=== PATIENT | male | born 1995 | race Caucasian/White ===

== ENCOUNTER 2019-01-24 23:17 | Inpatient (IN) | payer OTHER ==
[~2019-01-24] VITALS: Ht 170.2 cm; Wt 106.4 kg
[~2019-01-24 23:17] MED LIST: IBUP800T48 PO; SODI44SP11 NS
[2019-01-24] MEDS ORDERED: ONDANSETRON 4 MG INJ IV STA (23:40)
[2019-01-24] MEDS ORDERED: morphine 4 MG/ML VIAL IV STA (23:40)
[2019-01-24] MEDS ORDERED: SOD CHLORIDE 0.9% 1,000 ML IV STA (23:40)
[2019-01-25] VITALS (14 sets, daily range): BP systolic 114–149; BP diastolic 57–79; PULSE 70–114; RESP 11–18; Ht 170.2 cm; Wt 106.4 kg
--- NOTE | 2019-01-25 00:09 | ERD ---
ER Documentation Chief Complaint Chief Complaint R groin pain w/dysuria x 2 days HPI 23-year-old male is here with right-sided abdominal pain abdomen 2 days. Dysuria but no hematuria or frequency. No abnormal penile discharge. Denies testicular pain. he does state he is had fever at home as well as chills. No nausea vomiting or diarrhea. ROS All systems reviewed and are negative except as per history of present illness. Medications Home Meds Active Scripts Sodium Chloride (Saline Nasal [place]) 45 Ml [place], 2 SPRAYS NS Q2H PRN for NASAL CONGESTION, #1 BOT Prov:WANDA GRAVES. [employer] 03/01/15 Ibuprofen* (Motrin*) 800 Mg Tab, 800 MG PO Q6H PRN for PAIN AND OR ELEVATED TEMP, #30 TAB Prov:WANDA GRAVES. [employer] 03/01/15 Allergies Allergies: Coded Allergies: No Known Allergy (Unverified , 08/08/14) PMhx/Soc History of Surgery: No Anesthesia Reaction: No Hx Neurological Disorder: No Hx Respiratory Disorders: No Hx Cardiac Disorders: No Hx Psychiatric Problems: No Hx Miscellaneous Medical Probl: No Hx Alcohol Use: No Hx Substance Use: No Hx Tobacco Use: No Smoking Status: Never smoker FmHx Family History: No diabetes Physical Exam Vitals Vital Signs Date Temp Pulse Resp B/P (MAP) Pulse Ox O2 O2 Flow FiO2 Time Delivery Rate 01/24/19 99.8 87 18 143/63 98 23:20 (89) Physical Exam Const: No acute distress Head: Atraumatic Eyes: Normal Conjunctiva ENT: Normal External Ears, Nose and Mouth. Neck: Full range of motion. No meningismus. Resp: Clear to auscultation bilaterally Cardio: Regular rate and rhythm, no murmurs Abd: Soft, nondistended, positive McBurney's point tenderness, diffuse tenderness throughout Result Diagram: 01/24/19 2346 01/24/19 2346 Results 24 hrs Laboratory Tests Test 01/24/19 23:46 White Blood Count 14.8 10^3/ul Red Blood Count 5.06 10^6/ul Hemoglobin 15.3 g/dl Hematocrit 44.2 % Mean Corpuscular Volume 87.4 fl Mean Corpuscular Hemoglobin 30.2 pg Mean Corpuscular Hemoglobin Concent 34.6 g/dl Red Cell Distribution Width 11.4 % Platelet Count 478 10^3/UL Mean Platelet Volume 8.8 fl Immature Granulocytes % 0.500 % Neutrophils % 62.1 % Lymphocytes % 29.2 % Monocytes % 6.9 % Eosinophils % 0.8 % Basophils % 0.5 % Nucleated Red Blood Cells % 0.0 /100WBC Immature Granulocytes # 0.070 10^3/ul Neutrophils # 9.2 10^3/ul Lymphocytes # 4.3 10^3/ul Monocytes # 1.0 10^3/ul Eosinophils # 0.1 10^3/ul Basophils # 0.1 10^3/ul Nucleated Red Blood Cells # 0.0 10^3/ul Urine Color YELLOW Urine Clarity CLEAR Urine pH 6.0 Urine Specific [place] 1.025 Urine Ketones NEGATIVE mg/dL Urine Nitrite NEGATIVE mg/dL Urine Bilirubin NEGATIVE mg/dL Urine Urobilinogen NEGATIVE mg/dL Urine Leukocyte Esterase NEGATIVE Melody/ul Urine Microscopic RBC 2 /HPF Urine Microscopic WBC 0 /HPF Urine Mucus FEW /HPF Urine Hemoglobin 1+ mg/dL Urine Glucose NEGATIVE mg/dL Urine Total Protein NEGATIVE mg/dl Sodium Level 144 mmol/L Potassium Level 3.9 mmol/L Chloride Level 104 mmol/L Carbon Dioxide Level 27 mmol/L Anion Gap 13 Blood Urea Nitrogen 11 mg/dl Creatinine 0.96 mg/dl Est Glomerular Filtrat Rate mL/min > 60 mL/min Glucose Level 102 mg/dl Calcium Level 9.9 mg/dl Total Bilirubin 0.9 mg/dl Direct Bilirubin 0.00 mg/dl Indirect Bilirubin 0.9 mg/dl Aspartate Amino Transf (AST/SGOT) 57 IU/L Alanine Aminotransferase (ALT/SGPT) 117 IU/L Alkaline Phosphatase 83 IU/L Total Protein 8.3 g/dl Albumin 4.6 g/dl Globulin 3.70 g/dl Albumin/Globulin Ratio 1.24 Lipase 53 U/L Current Medications Medications Dose Sig/Froy Start Time Status Last (Trade) Ordered Route PRN Stop Time Admin Dose Reason Admin Sodium 1,000 ml @ Q1H STAT 01/24/19 DC 01/25/19 Chloride 1,000 mls/hr IV 23:40 00:01 01/25/19 00:39 Morphine 4 mg ONCE STAT 01/24/19 DC 01/25/19 Sulfate IV 23:40 00:01 (morphine) 01/24/19 23:42 Ondansetron 4 mg ONCE STAT 01/24/19 DC 01/25/19 HCl (Zofran IV 23:40 00:01 Inj) 01/24/19 23:42 Procedures/MDM The differential diagnosis includes but is not limited to appendicitis, cholelithiasis, cholecystitis, pancreatitis, hepatitis, gastritis, peptic ulcer disease, bowel obstruction, diverticulitis, renal disease including stones, torsion, AAA, pyelonephritis, and others. Abdominal labs and CT ordered. He was given IV fluids Zofran and morphine. Elevated white blood cell count of 14.8 otherwise labs are unremarkable. CT shows 1. Right lower quadrant 2 cm diameter. Structure with thick maldonado and surrounding infiltration which is most consistent with the appendix. The adjacent distal small small bowel wall thicken ing infiltration. Mild free fluid without a discrete abscess or collection. Relatively large diameter of the appendix is consistent with a surrounding inflammatory mass. Lack of intravenous contrast material limits evaluation for abscess. Patient will be moved to ER 1 for admission. Departure Diagnosis: Primary Impression: Appendicitis Condition: SOLIS Rm PA-C Jan 25, 2019 00:09
[2019-01-25] MEDS ORDERED: ONDANSETRON 4 MG INJ IV ONE (01:17)
[2019-01-25] MEDS ORDERED: morphine 4 MG/ML VIAL IV ONE (01:17)
[2019-01-25] MEDS ORDERED: LACTATED RINGER'S 1,000 ML IV STA (01:32)
[2019-01-25] MEDS ORDERED: PIPER-TAZO 3.375 GM IV (PMX) 100 ML IVPB ONE (02:00)
[2019-01-25] MEDS ORDERED: SOD CHLORIDE 0.9% 1,000 ML IV SCH (03:11)
--- NOTE | 2019-01-25 03:14 | EN ---
Date/Time of Note Date/Time of Note DATE: 01/25/19 TIME: 03:13 ER Progress Note This patient was originally seen in fast track and was diagnosed with appendicitis. The patient was transferred to the main emergency room. On my exam the patient did have right lower quadrant tenderness to palpation. I did review his labs and CAT scan and started the patient on Zosyn and IV fluids. After a small delay we were able to get a hold of on-call surgeon Dr. Us. I have presented the case to him and he states that he will consult Dr. Hilario so that physician can see this patient. The patient will be admitted to panel physician at this time OLIVIA DUFFY DO Jan 25, 2019 03:14
[2019-01-25] MEDS ORDERED: ONDANSETRON 4 MG INJ IV PRN ×3 (03:30→14:00)
[2019-01-25] MEDS ORDERED: ACETAMINOPHEN 325 MG TAB PO PRN (03:30)
[2019-01-25] MEDS ORDERED: D5W-0.45 NACL + KCL 20 MEQ 1,000 ML IV SCH (05:11)
[2019-01-25] MEDS ORDERED: NACL 0.9% 3 ML SYG IV SCH (05:30)
[2019-01-25] MEDS ORDERED: morphine 2 MG INJ IV PRN (05:30)
[2019-01-25] MEDS: PIPER-TAZO 3.375 GM IV (PMX) 100 ML IVPB SCH ×2 (05:50→12:05)
[2019-01-25] MEDS: morphine 4 MG/ML VIAL IV PRN ×2 (06:06→10:05)
--- NOTE | 2019-01-25 06:20 | HP ---
Date/Time of Note Date/Time of Note DATE: 01/25/19 TIME: 06:18 Assessment/Plan VTE Prophylaxis Risk score (from [facility]0 risk: 1 SCD applied (from Ns): Yes Pharmacological prophylaxis: NA/contraindicated Pharm contraindication: other (Patient with acute appendicitis, awaiting surgical eval) Lines/Catheters IV C[facility]ter Type [facility]from [facility] Saline Lock Assessment/Plan Assessment/Plan 1. Abdominal pain, most likely 2/2 acute Appendicitis -keep NPO with IVF -IV Abx -Pain mgmt -Awaiting surgical Eval 2. SIRS vs Sepsis: as evidenced by leukocytosis and tachycardia -IVF, abx -see #1 Result Diagram: 01/24/19 2346 01/24/19 2346 Results 24hrs Laboratory Tests Test 01/24/19 23:46 White Blood Count 14.8 H Red Blood Count 5.06 Hemoglobin 15.3 Hematocrit 44.2 Mean Corpuscular Volume 87.4 Mean Corpuscular Hemoglobin 30.2 Mean Corpuscular Hemoglobin Concent 34.6 Red Cell Distribution Width 11.4 L Platelet Count 478 H Mean Platelet Volume 8.8 Immature Granulocytes % 0.500 H Neutrophils % 62.1 Lymphocytes % 29.2 Monocytes % 6.9 Eosinophils % 0.8 Basophils % 0.5 Nucleated Red Blood Cells % 0.0 Immature Granulocytes # 0.070 H Neutrophils # 9.2 H Lymphocytes # 4.3 H Monocytes # 1.0 H Eosinophils # 0.1 Basophils # 0.1 Nucleated Red Blood Cells # 0.0 Urine Color YELLOW Urine Clarity CLEAR Urine pH 6.0 Urine Specific [place] 1.025 Urine Ketones NEGATIVE Urine Nitrite NEGATIVE Urine Bilirubin NEGATIVE Urine Urobilinogen NEGATIVE Urine Leukocyte Esterase NEGATIVE Urine Microscopic RBC 2 Urine Microscopic WBC 0 Urine Mucus FEW A Urine Hemoglobin 1+ H Urine Glucose NEGATIVE Urine Total Protein NEGATIVE Sodium Level 144 Potassium Level 3.9 Chloride Level 104 Carbon Dioxide Level 27 Anion Gap 13 Blood Urea Nitrogen 11 Creatinine 0.96 Est Glomerular Filtrat Rate mL/min > 60 Glucose Level 102 Calcium Level 9.9 Total Bilirubin 0.9 Direct Bilirubin 0.00 Indirect Bilirubin 0.9 Aspartate Amino Transf (AST/SGOT) 57 H Alanine Aminotransferase (ALT/SGPT) 117 H Alkaline Phosphatase 83 Total Protein 8.3 H Albumin 4.6 Globulin 3.70 H Albumin/Globulin Ratio 1.24 Lipase 53 HPI/ROS Admit Date/Time Admit Date/Time Jan 25, 2019 at 03:12 Hx of Present Illness Patient is a 23-year-old male who presented to ER complaining of abdominal pain x2 days. Pain is mainly localized in the right lower quadrant area. Reported associated nausea. When presented to the ER, he had a temp of 99.8. WBC almost 15,000. CT abdomen/pelvis shows the followin. Right lower quadrant 2 cm diameter. Structure with thick maldonado and surrounding infiltration which is most consistent with the appendix. The adjacent distal small small bowel wall thickening infiltration. Mild free fluid without a discrete abscess or collection. Relatively large diameter of the darshan endix is consistent with a surrounding inflammatory mass. Lack of intravenous contrast material limits evaluation for abscess. 2. Diffuse abdominal lymph nodes, largest in the right lower quadrant. 3. Enlarged fatty liver. PMH/Family/Social Past Medical History Medical History: other (See HPI) Medications Current Medications Sodium Chloride 1,000 ml @ 80 mls/hr [id number] IV ; Start 01/25/19 at 03:11; Stop 01/25/19 at 15:40 Ondansetron HCl (Zofran Inj) 4 mg BRIDGE ORDER PRN IV NAUSEA/VOMITING; Start 01/25/19 at 03:30; Stop 01/26/19 at 03:29 Acetaminophen (Tylenol Tab) 650 mg ER BRIDGE PRN PO .MILD PAIN 1-3 OR TEMP; Start 01/25/19 at 03:30; Stop 01/26/19 at 03:29 Potassium Chloride/Dextrose/ Sod Cl 1,000 ml @ 120 mls/hr Q8H20M IV Last administered on 01/25/19at 05:44; Admin Dose 120 MLS/HR; Start 01/25/19 at 05:11 IV Flush (NS 3 ml) 3 ml PER PROTOCOL IV ; Start 01/25/19 at 05:30 Ondansetron HCl (Zofran Inj) 4 mg Q6H PRN IV NAUSEA/VOMITING; Start 01/25/19 at 05:30 Piperacillin Sod/ Tazobactam Sod 100 ml @ 200 mls/hr Q6 IVPB Last administered on 01/25/19at 05:50; Admin Dose 200 MLS/HR; Start 01/25/19 at 06:00 Ketorolac Tromethamine (Toradol) 30 mg Q6H PRN IV PAIN LEVEL 1-3; Start 01/25/19 at 05:30; Stop 01/28/19 at 05:29 Morphine Sulfate (morphine) 2 mg Q4H PRN IV SEVERE PAIN LEVEL 7-10 Last administered on 01/25/19at 06:06; Admin Dose 2 MG; Start 01/25/19 at 06:03 Coded Allergies: No Known Allergy (Unverified , 08/08/14) Past Surgical History Past Surgical Hx: other (See HPI) Family History Significant Family History: no pertinent family hx Social History Alcohol Use: none Smoking Status: Never smoker Drug Use: none Exam/Review of Systems Vital Signs Vitals Vital Signs Date Temp Pulse Resp B/P (MAP) Pulse Ox O2 O2 Flow FiO2 Time Delivery Rate 01/25/19 97.9 75 18 135/70 99 Room Air 03:56 (91) Exam Constitutional: alert, oriented, well developed Head: normocephalic, atraumatic Eyes: PERRL Respiratory: clear to auscultation, normal air movement Cardiovascular: regular rate and rhythm, nl pulses Gastrointestinal: soft, tender Extremities: normal pulses JOY CHAUDHRY MD Jan 25, 2019 06:20
--- NOTE | 2019-01-25 10:29 | CONS ---
Assessment/Plan Assessment/Plan Hospital Course (Demo Recall) Admitted started on antibx - Dr. Silver consulted overnight -- was unable to do surgery bc of more urgent OR case - in am 9am case was signed out to Dr. Alvarez for follow up. patient was Rx with Antibx and fluids and pain meds -- CT completed. plan for OR Assessment/Plan (Daily) Acute appendicitis with possible abscess - associated inflammation Plan: Lap Appendectomy, possible open, depending on the degree of inflammation patient may need possible bowel resection Risk Benefits and alternative reviewed with the patient - translated in Irish Antibiotics on board Consultation Date/Type/Reason Admit Date/Time Jan 25, 2019 at 03:12 Type of Consult General Surgery Reason for Consultation Evaluation of acute appendicitis Date/Time of Note DATE: 01/25/19 TIME: 10:20 Hx of Present Illness Patient is a 23-year-old male who presented to ER complaining of abdominal pain x2 days. Pain is mainly localized in the right lower quadrant area. Reported associated nausea. When presented to the ER, he had a temp of 99.8. WBC almost 15,000. CT abdomen/pelvis shows the followin. Right lower quadrant 2 cm diameter. Structure with thick maldonado and surrounding infiltration which is most consistent with the appendix. The adjacent distal small small bowel wall thickening infiltration. Mild free fluid without a discrete abscess or collection. Relatively large diameter of the appendix is consistent with a surrounding inflammatory mass. Lack of intravenous contrast material limits evaluation for abscess. 2. Diffuse abdominal lymph nodes, largest in the right lower quadrant. 3. Enlarged fatty liver. Gastrointestinal: pain (2 days lower abdomen, + wt gain, increase appetitie past few months ) Past Medical History Medical History: other (See HPI) Home Meds Active Scripts Sodium Chloride (Saline Nasal [place]) 45 Ml [place], 2 SPRAYS NS Q2H PRN for NASAL CONGESTION, #1 BOT Prov:WANDA GRAVES. 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 Ibuprofen* (Motrin*) 800 Mg Tab, 800 MG PO Q6H PRN for PAIN AND OR ELEVATED TEMP, #30 TAB Prov:WANDA GRAVES. 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 Medications Current Medications Sodium Chloride 1,000 ml @ 80 mls/hr [id number] IV ; Start 01/25/19 at 03:11; Stop 01/25/19 at 15:40 Ondansetron HCl (Zofran Inj) 4 mg BRIDGE ORDER PRN IV NAUSEA/VOMITING; Start 01/25/19 at 03:30; Stop 01/26/19 at 03:29 Acetaminophen (Tylenol Tab) 650 mg ER BRIDGE PRN PO .MILD PAIN 1-3 OR TEMP; Start 01/25/19 at 03:30; Stop 01/26/19 at 03:29 Potassium Chloride/Dextrose/ Sod Cl 1,000 ml @ 120 mls/hr Q8H20M IV Last administered on 01/25/19at 05:44; Admin Dose 120 MLS/HR; Start 01/25/19 at 05:11 IV Flush (NS 3 ml) 3 ml PER PROTOCOL IV ; Start 01/25/19 at 05:30 Ondansetron HCl (Zofran Inj) 4 mg Q6H PRN IV NAUSEA/VOMITING; Start 01/25/19 at 05:30 Piperacillin Sod/ Tazobactam Sod 100 ml @ 200 mls/hr Q6 IVPB Last administered on 01/25/19at 05:50; Admin Dose 200 MLS/HR; Start 01/25/19 at 06:00 Ketorolac Tromethamine (Toradol) 30 mg Q6H PRN IV PAIN LEVEL 1-3; Start 01/25/19 at 05:30; Stop 01/28/19 at 05:29 Morphine Sulfate (morphine) 2 mg Q4H PRN IV SEVERE PAIN LEVEL 7-10 Last administered on 01/25/19at 10:05; Admin Dose 2 MG; Start 01/25/19 at 06:03 Allergies: Coded Allergies: No Known Allergy (Unverified , 08/08/14) Past Surgical History Past Surgical Hx: other (See HPI) Social History Alcohol Use: none Smoking Status: Never smoker Drug Use: none Exam/Review of Systems Exam Vitals Vital Signs Date Temp Pulse Resp B/P (MAP) Pulse Ox O2 O2 Flow FiO2 Time Delivery Rate 01/25/19 98.3 70 18 143/70 98 Room Air 08:00 (94) Constitutional: No alert, No oriented, No well developed, No non-verbal, No distress, No frail, No obese, No other Psych: No no complaints, No nl mood/affect, No anxiety, No confusion, No depression, No suicidal, No other Head: No normocephalic, No atraumatic, No lacerations, No hematomas, No other Eyes: No nl conjunctiva, No EOMI, No nl lids, No nl sclera, No PERRL, No icteric, No fundi, disc, No other Neck: No supple, No non-tender, No jvd, No bruits, No masses, No thyromegaly, No nuchal rigidity, No other Respiratory: No clear to auscultation, No normal air movement, No congested cough, No crackles/rales, No diminished breath sounds, No intercostal retraction, No labored breathing, No respirations, No tactile fremitus, No wheezing, No other Cardiovascular: No regular rate and rhythm, No nl pulses, No bruits, No marni stolic murmur, No edema, No gallop, No irregular rhythm, No jugular venous distention (JVD), No murmurs/extra sounds, No rub, No systolic murmur, No S3, No S4, No other Gastrointestinal: soft, distended, tender, other (Right lower quadrant tenderness ) Musculoskeletal: No nl extremities to inspection, No nl gait and stance, No joint tenderness, No muscle tone, No muscle weakness, No range of motion, No spine non-tender, No swelling, No other Extremities: No normal pulses, No calf tenderness, No cyanosis, No clubbing, No edema, No pitting pedal edema, No palpable cord, No tenderness, No other Neurological: No TECHNICAL LEAD II-XII intact, No nl mental status, No nl speech, No nl strength, No confused, No DTR's symmetric, No focal weakness, No lethargic, No numbness, No reflexes, No unresponsive, No other Skin: No nl turgor, No rash or lesions, No diaphoresis, No ecchymosis, No laceration, No puncture, No other Results Result Diagram: 01/24/19 2346 01/24/19 2346 Results 24hrs Laboratory Tests Test 01/24/19 23:46 White Blood Count 14.8 H Red Blood Count 5.06 Hemoglobin 15.3 Hematocrit 44.2 Mean Corpuscular Volume 87.4 Mean Corpuscular Hemoglobin 30.2 Mean Corpuscular Hemoglobin Concent 34.6 Red Cell Distribution Width 11.4 L Platelet Count 478 H Mean Platelet Volume 8.8 Immature Granulocytes % 0.500 H Neutrophils % 62.1 Lymphocytes % 29.2 Monocytes % 6.9 Eosinophils % 0.8 Basophils % 0.5 Nucleated Red Blood Cells % 0.0 Immature Granulocytes # 0.070 H Neutrophils # 9.2 H Lymphocytes # 4.3 H Monocytes # 1.0 H Eosinophils # 0.1 Basophils # 0.1 Nucleated Red Blood Cells # 0.0 Urine Color YELLOW Urine Clarity CLEAR Urine pH 6.0 Urine Specific [place] 1.025 Urine Ketones NEGATIVE Urine Nitrite NEGATIVE Urine Bilirubin NEGATIVE Urine Urobilinogen NEGATIVE Urine Leukocyte Esterase NEGATIVE Urine Microscopic RBC 2 Urine Microscopic WBC 0 Urine Mucus FEW A Urine Hemoglobin 1+ H Urine Glucose NEGATIVE Urine Total Protein NEGATIVE Sodium Level 144 Potassium Level 3.9 Chloride Level 104 Carbon Dioxide Level 27 Anion Gap 13 Blood Urea Nitrogen 11 Creatinine 0.96 Est Glomerular Filtrat Rate mL/min > 60 Glucose Level 102 Calcium Level 9.9 Total Bilirubin 0.9 Direct Bilirubin 0.00 Indirect Bilirubin 0.9 Aspartate Amino Transf (AST/SGOT) 57 H Alanine Aminotransferase (ALT/SGPT) 117 H Alkaline Phosphatase 83 Total Protein 8.3 H Albumin 4.6 Globulin 3.70 H Albumin/Globulin Ratio 1.24 Lipase 53 Imaging Imaging IMPRESSION: 1. Right lower quadrant 2 cm diameter. Structure with thick maldonado and surrounding infiltration which is most consistent with the appendix. The adjacent distal small small bowel wall thickening infiltration. Mild free fluid without a discrete abscess or collection. Relatively large diameter of the appendix is consistent with a surrounding inflammatory mass. Lack of intravenous contrast material limits evaluation for abscess. 2. Diffuse abdominal lymph nodes, largest in the right lower quadrant. 3. Enlarged fatty liver. Medications Medication Current Medications Sodium Chloride 1,000 ml @ 80 mls/hr [id number] IV ; Start 01/25/19 at 03:11; Stop 01/25/19 at 15:40 Ondansetron HCl (Zofran Inj) 4 mg BRIDGE ORDER PRN IV NAUSEA/VOMITING; Start 01/25/19 at 03:30; Stop 01/26/19 at 03:29 Acetaminophen (Tylenol Tab) 650 mg ER BRIDGE PRN PO .MILD PAIN 1-3 OR TEMP; Start 01/25/19 at 03:30; Stop 01/26/19 at 03:29 Potassium Chloride/Dextrose/ Sod Cl 1,000 ml @ 120 mls/hr Q8H20M IV Last administered on 01/25/19at 05:44; Admin Dose 120 MLS/HR; Start 01/25/19 at 05:11 IV Flush (NS 3 ml) 3 ml PER PROTOCOL IV ; Start 01/25/19 at 05:30 Ondansetron HCl (Zofran Inj) 4 mg Q6H PRN IV NAUSEA/VOMITING; Start 01/25/19 at 05:30 Piperacillin Sod/ Tazobactam Sod 100 ml @ 200 mls/hr Q6 IVPB Last administered on 01/25/19at 05:50; Admin Dose 200 MLS/HR; Start 01/25/19 at 06:00 Ketorolac Tromethamine (Toradol) 30 mg Q6H PRN IV PAIN LEVEL 1-3; Start 01/25/19 at 05:30; Stop 01/28/19 at 05:29 Morphine Sulfate (morphine) 2 mg Q4H PRN IV SEVERE PAIN LEVEL 7-10 Last administered on 01/25/19at 10:05; Admin Dose 2 MG; Start 01/25/19 at 06:03 PHAM MCINTYRE MD Jan 25, 2019 10:29
--- NOTE | 2019-01-25 12:21 | PN ---
Date/Time of Note Date/Time of Note DATE: 01/25/19 TIME: 12:18 Assessment/Plan VTE Prophylaxis Risk score (from Ns)>0 risk: 1 SCD applied (from [facility] [place] SCD contraindicated: low risk/ambulating Pharmacological prophylaxis: NA/contraindicated Pharm contraindication: low risk/ambulating Lines/Catheters IV Catheter Type (from [facility]): Peripheral IV Assessment/Plan Hospital Course 1. Abdominal pain,secondary to acute Appendicitis -continue NPO and IVF -IV Abx -Pain mgmt -Plan for lap-appy 2. SIRS vs Sepsis: as evidenced by leukocytosis and tachycardia - continue abx -Monitor Trend Dispo/Plan: continue abx. plan for lap-appy. Discussed POC with Dr. Damian Result Diagram: 01/24/196 01/24/19 2346 Results 24hrs Laboratory Tests Test 01/24/19 23:46 White Blood Count 14.8 H Red Blood Count 5.06 Hemoglobin 15.3 Hematocrit 44.2 Mean Corpuscular Volume 87.4 Mean Corpuscular Hemoglobin 30.2 Mean Corpuscular Hemoglobin Concent 34.6 Red Cell Distribution Width 11.4 L Platelet Count 478 H Mean Platelet Volume 8.8 Immature Granulocytes % 0.500 H Neutrophils % 62.1 Lymphocytes % 29.2 Monocytes % 6.9 Eosinophils % 0.8 Basophils % 0.5 Nucleated Red Blood Cells % 0.0 Immature Granulocytes # 0.070 H Neutrophils # 9.2 H Lymphocytes # 4.3 H Monocytes # 1.0 H Eosinophils # 0.1 Basophils # 0.1 Nucleated Red Blood Cells # 0.0 Urine Color YELLOW Urine Clarity CLEAR Urine pH 6.0 Urine Specific [place] 1.025 Urine Ketones NEGATIVE Urine Nitrite NEGATIVE Urine Bilirubin NEGATIVE Urine Urobilinogen NEGATIVE Urine Leukocyte Esterase NEGATIVE Urine Microscopic RBC 2 Urine Microscopic WBC 0 Urine Mucus FEW A Urine Hemoglobin 1+ H Urine Glucose NEGATIVE Urine Total Protein NEGATIVE Sodium Level 144 Potassium Level 3.9 Chloride Level 104 Carbon Dioxide Level 27 Anion Gap 13 Blood Urea Nitrogen 11 Creatinine 0.96 Est Glomerular Filtrat Rate mL/min > 60 Glucose Level 102 Calcium Level 9.9 Total Bilirubin 0.9 Direct Bilirubin 0.00 Indirect Bilirubin 0.9 Aspartate Amino Transf (AST/SGOT) 57 H Alanine Aminotransferase (ALT/SGPT) 117 H Alkaline Phosphatase 83 Total Protein 8.3 H Albumin 4.6 Globulin 3.70 H Albumin/Globulin Ratio 1.24 Lipase 53 Subjective 24 Hr Interval Summary Free Text/Dictation still reports pain on RLQ. reports feeling hungry Exam/Review of Systems Exam Vitals Vital Signs Date Temp Pulse Resp B/P (MAP) Pulse Ox O2 O2 Flow FiO2 Time Delivery Rate 01/25/19 98.3 70 18 143/70 98 Room Air 08:00 (94) Constitutional: alert, oriented Psych: nl mood/affect Head: normocephalic Eyes: nl conjunctiva Neck: supple, non-tender Respiratory: clear to auscultation Cardiovascular: regular rate and rhythm Gastrointestinal: soft, tender Musculoskeletal: nl extremities to inspection Extremities: normal pulses Neurological: DOCUMENTATION SPECIALIST II-XII intact, nl mental status, nl speech Results Results 24hrs Laboratory Tests Test 01/24/19 23:46 White Blood Count 14.8 H Red Blood Count 5.06 Hemoglobin 15.3 Hematocrit 44.2 Mean Corpuscular Volume 87.4 Mean Corpuscular Hemoglobin 30.2 Mean Corpuscular Hemoglobin Concent 34.6 Red Cell Distribution Width 11.4 L Platelet Count 478 H Mean Platelet Volume 8.8 Immature Granulocytes % 0.500 H Neutrophils % 62.1 Lymphocytes % 29.2 Monocytes % 6.9 Eosinophils % 0.8 Basophils % 0.5 Nucleated Red Blood Cells % 0.0 Immature Granulocytes # 0.070 H Neutrophils # 9.2 H Lymphocytes # 4.3 H Monocytes # 1.0 H Eosinophils # 0.1 Basophils # 0.1 Nucleated Red Blood Cells # 0.0 Urine Color YELLOW Urine Clarity CLEAR Urine pH 6.0 Urine Specific [place] 1.025 Urine Ketones NEGATIVE Urine Nitrite NEGATIVE Urine Bilirubin NEGATIVE Urine Urobilinogen NEGATIVE Urine Leukocyte Esterase NEGATIVE Urine Microscopic RBC 2 Urine Microscopic WBC 0 Urine Mucus FEW A Urine Hemoglobin 1+ H Urine Glucose NEGATIVE Urine Total Protein NEGATIVE Sodium Level 144 Potassium Level 3.9 Chloride Level 104 Carbon Dioxide Level 27 Anion Gap 13 Blood Urea Nitrogen 11 Creatinine 0.96 Est Glomerular Filtrat Rate mL/min > 60 Glucose Level 102 Calcium Level 9.9 Total Bilirubin 0.9 Direct Bilirubin 0.00 Indirect Bilirubin 0.9 Aspartate Amino Transf (AST/SGOT) 57 H Alanine Aminotransferase (ALT/SGPT) 117 H Alkaline Phosphatase 83 Total Protein 8.3 H Albumin 4.6 Globulin 3.70 H Albumin/Globulin Ratio 1.24 Lipase 53 Medications Medication Current Medications Sodium Chloride 1,000 ml @ 80 mls/hr [id number] IV ; Start 01/25/19 at 03:11; Stop 01/25/19 at 15:40 Ondansetron HCl (Zofran Inj) 4 mg BRIDGE ORDER PRN IV NAUSEA/VOMITING; Start 01/25/19 at 03:30; Stop 01/26/19 at 03:29 Acetaminophen (Tylenol Tab) 650 mg ER BRIDGE PRN PO .MILD PAIN 1-3 OR TEMP; Start 01/25/19 at 03:30; Stop 01/26/19 at 03:29 Potassium Chloride/Dextrose/ Sod Cl 1,000 ml @ 120 mls/hr Q8H20M IV Last administered on 01/25/19at 05:44; Admin Dose 120 MLS/HR; Start 01/25/19 at 05:11 IV Flush (NS 3 ml) 3 ml PER PROTOCOL IV ; Start 01/25/19 at 05:30 Ondansetron HCl (Zofran Inj) 4 mg Q6H PRN IV NAUSEA/VOMITING; Start 01/25/19 at 05:30 Piperacillin Sod/ Tazobactam Sod 100 ml @ 200 mls/hr Q6 IVPB Last administered on 01/25/19at 12:05; Admin Dose 200 MLS/HR; Start 01/25/19 at 06:00 Ketorolac Tromethamine (Toradol) 30 mg Q6H PRN IV PAIN LEVEL 1-3; Start 01/25/19 at 05:30; Stop 01/28/19 at 05:29 Morphine Sulfate (morphine) 2 mg Q4H PRN IV SEVERE PAIN LEVEL 7-10 Last administered on 01/25/19at 10:05; Admin Dose 2 MG; Start 01/25/19 at 06:03 PIETRO ALVAREZ NP Jan 25, 2019 12:21
--- NOTE | 2019-01-25 12:38 | PREAC ---
Date/Time of Note Date/Time of Note DATE: 01/25/19 TIME: 12:37 Anesthesia Eval and Record Evaluation Time Pre-Procedure Interview DATE: 01/25/19 TIME: 12:37 Age 23 Sex male NPO: 8 hrs Preoperative diagnosis acute appendicitis Planned procedure laparoscopic appendectomy Past Medical History Past Medical History: Includes GI: Obesity Surgery & Anesthesia Issues No known issue Meds Anticoagulation: No Beta Garcia within 24 hr: No Reason Beta Garcia not given: Pt. not on B-Garcia Active Scripts Sodium Chloride (Saline Nasal Terrell) 45 Ml Terrell, 2 SPRAYS NS Q2H PRN for NASAL CONGESTION, #1 BOT Prov:WANDA GRAVES MOBILE PATROL OFFICER 03/01/15 Ibuprofen* (Motrin*) 800 Mg Tab, 800 MG PO Q6H PRN for PAIN AND OR ELEVATED TEM P, #30 TAB Prov:WANDA GRAVES MOBILE PATROL OFFICER 03/01/15 Current Medications Sodium Chloride 1,000 ml @ 80 mls/hr [id number] IV ; Start 01/25/19 at 03:11; Stop 01/25/19 at 15:40 Ondansetron HCl (Zofran Inj) 4 mg BRIDGE ORDER PRN IV NAUSEA/VOMITING; Start 01/25/19 at 03:30; Stop 01/26/19 at 03:29 Acetaminophen (Tylenol Tab) 650 mg ER BRIDGE PRN PO .MILD PAIN 1-3 OR TEMP; Start 01/25/19 at 03:30; Stop 01/26/19 at 03:29 Potassium Chloride/Dextrose/ Sod Cl 1,000 ml @ 120 mls/hr Q8H20M IV Last administered on 01/25/19at 05:44; Admin Dose 120 MLS/HR; Start 01/25/19 at 05:11 IV Flush (NS 3 ml) 3 ml PER PROTOCOL IV ; Start 01/25/19 at 05:30 Ondansetron HCl (Zofran Inj) 4 mg Q6H PRN IV NAUSEA/VOMITING; Start 01/25/19 at 05:30 Piperacillin Sod/ Tazobactam Sod 100 ml @ 200 mls/hr Q6 IVPB Last administered on 01/25/19at 12:05; Admin Dose 200 MLS/HR; Start 01/25/19 at 06:00 Ketorolac Tromethamine (Toradol) 30 mg Q6H PRN IV PAIN LEVEL 1-3; Start 01/25/19 at 05:30; Stop 01/28/19 at 05:29 Morphine Sulfate (morphine) 2 mg Q4H PRN IV SEVERE PAIN LEVEL 7-10 Last administered on 01/25/19at 10:05; Admin Dose 2 MG; Start 01/25/19 at 06:03 Meds reviewed: Yes Allergies Coded Allergies: No Known Allergy (Unverified , 08/08/14) Allergies Reviewed: Yes Labs/Studies Labs Reviewed: Reviewed by anesthesiologist Result Diagram: 01/24/19 2346 01/24/19 2346 Laboratory Tests 01/24/19 23:46 test: N/A Studies: ECG Pre-procedure Exam Last vitals Vital Signs Date Temp Pulse Resp B/P (MAP) Pulse Ox O2 O2 Flow FiO2 Time Delivery Rate 01/25/19 98.3 70 18 143/70 98 Room Air 08:00 (94) Airway: Adequate mouth opening, Adequate thyromental dist Mallampati: Mallampati II Teeth: Normal Lung: Normal Heart: Normal ASA Physical Status ASA physical status: 2 Emergency: None Planned Anesthetic General/MAC: ETT Nerve block: TAP (bilateral) Planned Pain Management Single shot nerve block, Parenteral pain med Pre-operative Attestations Prior to commencing anesthesia and surgery, the patient was re-evaluated, there was verification of: *The patient's identity *The results of appropriate recent lab work and preoperative vital signs *The above evaluation not changing prior to induction *Anesthetic plan, risk benefits, alternative and complications discussed with patient/family; questions answered; patient/family understands, accepts and wishes to proceed. AMAN AYALA MD Jan 25, 2019 12:38
[2019-01-25] MEDS ORDERED: BUPIVACAINE 0.25%/EPI (SDV) 30 ML INJ ONE (13:29)
[2019-01-25] MEDS ORDERED: PHENYLephrine (100 MCG/ML) 5ML SYG ONE (13:40)
[2019-01-25] MEDS ORDERED: FENTAnyl 50 MCG/ML VIAL ONE ×2 (13:40→16:14)
[2019-01-25] MEDS ORDERED: SEVOFLURANE 15 MIN ONE (13:40)
[2019-01-25] MEDS ORDERED: MIDAZOLAM 1 MG/ML 2 ML INJ ONE (13:41)
[2019-01-25] MEDS ORDERED: PROPOFOL 40 ML ONE (13:48)
[2019-01-25] MEDS ORDERED: LIDOCAINE 2% (SDV) 5 ML INJ ONE (13:48)
[2019-01-25] MEDS ORDERED: ROPIVACAINE 0.5 % 30 ML VIAL ONE (13:48)
[2019-01-25] MEDS ORDERED: ROCURONIUM 50 MG INJ ONE ×4 (13:48→15:33)
[2019-01-25] MEDS ORDERED: SUCCINYLCHOLINE CHLORIDE 100 MG/5 ML SYG IV ONE (13:48)
[2019-01-25] MEDS ORDERED: DEXAMETHASONE 4 MG/ML 5 ML INJ ONE (14:00)
[2019-01-25] MEDS ORDERED: ONDANSETRON 4 MG INJ ONE (14:00)
[2019-01-25] MEDS ORDERED: HYDROmorphONE 1 MG/5 ML IV SYRINGE IV PRN ×3 (14:00)
[2019-01-25] MEDS ORDERED: MEPERIDINE 25 MG INJ IV PRN (14:00)
[2019-01-25] MEDS ORDERED: PROCHLORPERAZINE 10 MG INJ IV PRN (14:00)
[2019-01-25] MEDS ORDERED: DIPHENHYDRAMINE 50 MG INJ IV PRN ×2 (14:00→16:30)
[2019-01-25] MEDS ORDERED: FENTAnyl 50 MCG/ML VIAL IV PRN (14:00)
[2019-01-25] MEDS ORDERED: FAMOTIDINE 20 MG INJ ONE (14:01)
[2019-01-25] MEDS ORDERED: HYDROmorphONE 2 MG/ML SYG ONE (14:41)
[2019-01-25] MEDS ORDERED: SUGAMMADEX SODIUM 200 MG/2 ML VIAL IV ONE (16:04)
[2019-01-25] MEDS: LACTATED RINGER'S 1,000 ML IV SCH (16:25)
[2019-01-25] MEDS ORDERED: HYDROCODONE/APAP (10/325) TAB PO PRN (16:30)
--- NOTE | 2019-01-25 16:36 | SIPON ---
Date/Time of Note Date/Time of Note DATE: 01/25/19 TIME: 16:33 Operative Report Preoperative Diagnosis Acute Appendicitis, Adhesions, Postoperative Diagnosis Inflammatory mass, Acute Appendicitis Operation/Procedure Performed Laparoscopic appendectomy Converted to open laparotomy, Lysis of adhesions, washout drain placement Surgeon Maxwell Cohen MD car rental sales assistant none Anesthesia: general Estimated blood loss: minimal Transfusion Required none Specimen none Grafts/Implants none Complications none MAXWELL COHEN MD Jan 25, 2019 16:36
--- NOTE | 2019-01-25 16:53 | PAC ---
Date/Time of Note Date/Time of Note DATE: 01/25/19 TIME: 16:51 Post-Anesthesia Notes Post-Anesthesia Note Last documented vital signs Vital Signs Date Temp Pulse Resp B/P (MAP) Pulse Ox O2 O2 Flow FiO2 Time Delivery Rate 01/25/19 98.2 16:32 01/25/19 70 18 143/70 98 Room Air 08:00 (94) Activity: WNL Respiratory function: WNL Cardiovascular function: WNL Mental status: Baseline Pain reasonably controlled: Yes Hydration appropriate: Yes Nausea/Vomiting absent: Yes Comments BP: 138/63 HR: 99 RR: 15 T: 98.2 SaO2: 98% AMAN AYALA MD Jan 25, 2019 16:53
[2019-01-25] MEDS: KETOROLAC 30 MG INJ IV PRN (17:33)
[2019-01-25] MEDS: AMPICILLIN/SULB 3 GM/NS (PMX) 100 ML IVPB SCH ×2 (18:28→23:43)
[2019-01-25] MEDS: HYDROmorphONE 0.5 MG/0.5 ML SYG IV PRN (20:47)
--- NOTE | 2019-01-25 20:49 | OPR ---
DATE OF OPERATION: 01/25/2019 PREOPERATIVE DIAGNOSES: 1. Acute appendicitis. 2. Morbid obesity with body mass index of 36.7. 3. Inflammatory mass. POSTOPERATIVE DIAGNOSES: 1. Acute appendicitis. 2. Morbid obesity with body mass index of 36.7. 3. Inflammatory mass. PROCEDURE PERFORMED: Laparoscopic appendectomy converted to open laparotomy, extensive lysis of adhesions, washout and drain placement. TYPE OF DRAIN: Flat KRISHNA x2, 18-[place]. SPECIMEN: None. ESTIMATED BLOOD LOSS: Minimal. COMPLICATIONS: None. PATIENT HISTORY: The patient is a 23-year-old male with more than 7 days' history of abdominal pain, who presented to the emergency room complaining of persistent pain in the right lower quadrant. Initially, the patient reported 2 days of abdominal pain. CT examination showed a 2 cm diameter thickened wall mass which is consistent with appendicitis and adjacent distal small bowel wall thickening and infiltration with some inflammatory changes. Additionally, there was evidence of diffuse abdominal lymph nodes, largest in the right lower quadrant, enlarged fatty liver. Patient's white count was 14.8 with abnormal AST, ALT. The patient was consent for a laparoscopic, possible open, appendectomy, possible bowel resection. I discussed with the patient that because of delay in diagnosis, the patient may need an open appendectomy, possible bowel resection prior to the operation. OPERATIVE REPORT: The patient was seen in the preoperative area, was transferred to the operative room. Preoperative antibiotic had already been administered to the patient. The patient was sedated and intubated. Appropriate timeout was completed by the operating room team. Initially, we used Veress needle insufflation in the left upper quadrant after water drop test confirmed Veress needle being in good position. The abdomen was insufflated with CO2 to approximately 15 mmHg. Next, we used an Optiview trocar to make careful entry inside the peritoneal cavity. Once inside the peritoneal cavity we placed 2 additional trocars, a 5 mm trocar in the right upper quadrant and a 12 mm trocar at the periumbilical site and a 5 mm trocar at the suprapubic area. After initial placement of the trocars, we placed the patient in Trendelenburg and airplaned the patient away from the right side to visualize the appendix. It quickly became apparent that there was a significant amount of adhesions and inflammatory mass in the midabdomen and right lower quadrant. An initial attempt was made to placing additional trocars to allow for better visualization in the upper abdomen off the lower mid abdominal mass. Two additional trocars were placed and a second attempt was made to laparoscopically dissect. We were unable to laparoscopically visualize this structure, therefore, I proceeded to convert to an open operation. A midline incision was made and carried down to the fascia using a 10 blade and Bovie cautery was used to divide the abdominal wall, making careful entry into the peritoneal cavity under direct visualization and sharp dissection. Once inside the peritoneal cavity we proceeded to quickly identify the area where the appendix would have resided, and careful dissection using palpation was performed. It should be noted that the patient has significant morbid obesity and thickened abdominal wall, making our effort to visualize the area of appendix very difficult. The omentum was mobilized and the small bowel was released from the inflammatory mass; however, the inflammatory mass appeared to be thickened and attached intimately to the floor and back wall of the abdominal cavity, making it rather impossible to have any margins where I could do a bowel resection or mobilization of the colon medially to do a colon resection. At this point I attempted to get additional assistant director of security and called Dr. Mayers and Dr. Rose and Dr. Us; none of them were available for assistant director of security, and after a brief discussion with Dr. Mayers, I felt that the best course of action would be to leave the appendix in situ, place drains, and use omentum to surround the appendix. Two large KRISHNA drains were placed and the anterior abdominal wall and the abdomen were washed out and the anterior abdominal wall was closed using 0 looped PDS suture. The patient tolerated the procedure well, was sent to PACU in stable condition. I discussed the operative findings with the patient's mother and brother. The patient will remain on IV antibiotics and drains in place. We will plan for possible interval appendectomy versus possible delayed interval appendectomy. Dictated By: PHAM HAMEED Conf#: [id number] DID#: [id number] MTDD
[2019-01-25] MEDS: HEPARIN 5,000 UNIT/1 ML VIAL SC SCH (20:50)
[2019-01-26] MEDS: morphine 4 MG/ML VIAL IV PRN ×4 (01:34→19:36)
[2019-01-26 01:37] VITALS: BP 125/64; PULSE 89; RESP 18
[2019-01-26] MEDS: LACTATED RINGER'S 1,000 ML IV SCH ×4 (02:31→23:02)
[2019-01-26] MEDS: AMPICILLIN/SULB 3 GM/NS (PMX) 100 ML IVPB SCH ×2 (05:42→13:56)
[2019-01-26 07:15] VITALS: BP 154/76; PULSE 86; RESP 18
[2019-01-26] MEDS: HEPARIN 5,000 UNIT/1 ML VIAL SC SCH ×2 (08:29→21:08)
[2019-01-26] MEDS: HYDROmorphONE 0.5 MG/0.5 ML SYG IV PRN (09:55)
--- NOTE | 2019-01-26 12:23 | PN ---
Date/Time of Note Date/Time of Note DATE: 01/26/19 TIME: 12:18 Assessment/Plan VTE Prophylaxis Risk score (from Ns)>0 risk: 7 SCD applied (from [facility]): Yes Pharmacological prophylaxis: heparin Lines/Catheters IV Catheter Type (from [facility]): Peripheral IV Assessment/Plan Hospital Course #Abdominal pain,secondary to acute Appendicitis -continue NPO and IVF -IV Abx -Pain mgmt Laparoscopic appendectomy converted to open laparotomy with extensive lysis of adhesions with washout and drain placement January 25, 2019. per report there was inflammatory mass attached intimately to floor and back wall of abdominal cav ity. Tentative plan for appendectomy. Follow-up with surgeon. #SIRS vs Sepsis: as evidenced by leukocytosis and tachycardia - continue abx -Monitor Trend Will get ID consult to follow #Diffuse abdominal lymph nodes Discussed with surgeon, will get oncologist to follow. #Transaminitis. Noted with enlarged fatty liver. Monitor LFT. Dispo/Plan: Status post laparotomy with lysis of adhesions. Continue IV fluids. Analgesics adjusted. Follow-up surgeon. Monitor in-house. Check a.m. labs. Discussed POC with Dr. Damian Result Diagram: 01/26/19 0452 01/26/19 0452 Results 24hrs Laboratory Tests Test 01/26/19 04:52 White Blood Count 13.9 H Red Blood Count 4.77 Hemoglobin 14.6 Hematocrit 43.2 Mean Corpuscular Volume 90.6 Mean Corpuscular Hemoglobin 30.6 Mean Corpuscular Hemoglobin Concent 33.8 Red Cell Distribution Width 11.4 L Platelet Count 476 H Mean Platelet Volume 8.8 Immature Granulocytes % 0.500 H Neutrophils % 76.9 Lymphocytes % 15.0 Monocytes % 7.5 Eosinophils % 0.0 Basophils % 0.1 Nucleated Red Blood Cells % 0.0 Immature Granulocytes # 0.070 H Neutrophils # 10.7 H Lymphocytes # 2.1 Monocytes # 1.1 H Eosinophils # 0.0 Basophils # 0.0 Nucleated Red Blood Cells # 0.0 Sodium Level 144 Potassium Level 4.4 Chloride Level 104 Carbon Dioxide Level 28 Anion Gap 12 Blood Urea Nitrogen 11 Creatinine 0.82 Est Glomerular Filtrat Rate mL/min > 60 Glucose Level 123 Calcium Level 9.3 Phosphorus Level 4.9 Magnesium Level 2.2 Total Bilirubin 0.9 Direct Bilirubin 0.00 Indirect Bilirubin 0.9 Aspartate Amino Transf (AST/SGOT) 56 H Alanine Aminotransferase (ALT/SGPT) 88 H Alkaline Phosphatase 72 Total Protein 7.5 Albumin 4.1 Globulin 3.40 H Albumin/Globulin Ratio 1.20 Subjective 24 Hr Interval Summary Free Text/Dictation Patient still reports abdominal pain. Seen with family at bedside. No nausea vomiting reported. Exam/Review of Systems Exam Vitals Vital Signs Date Temp Pulse Resp B/P (MAP) Pulse Ox O2 O2 Flow FiO2 Time Delivery Rate 01/26/19 Nasal 2.0 08:00 Cannula 01/26/19 98.5 86 18 154/76 100 07:15 (102) Intake and Output 01/25/19 01/25/19 01/26/19 1515:00 23:00 07:00 IntakeIntake Total 3600 ml 500 ml OutputOutput Total 429 ml 435 ml BalanceBalance 3171 ml 65 ml Constitutional: alert, oriented Neck: supple, non-tender Respiratory: clear to auscultation Cardiovascular: regular rate and rhythm Gastrointestinal: soft, tender, other (Abdominal incision noted clean dry and intact with KRISHNA drain ) Musculoskeletal: nl extremities to inspection Neurological: COPY CENTER OPERATOR II-XII intact, nl mental status, nl speech Results Results 24hrs Laboratory Tests Test 01/26/19 04:52 White Blood Count 13.9 H Red Blood Count 4.77 Hemoglobin 14.6 Hematocrit 43.2 Mean Corpuscular Volume 90.6 Mean Corpuscular Hemoglobin 30.6 Mean Corpuscular Hemoglobin Concent 33.8 Red Cell Distribution Width 11.4 L Platelet Count 476 H Mean Platelet Volume 8.8 Immature Granulocytes % 0.500 H Neutrophils % 76.9 Lymphocytes % 15.0 Monocytes % 7.5 Eosinophils % 0.0 Basophils % 0.1 Nucleated Red Blood Cells % 0.0 Immature Granulocytes # 0.070 H Neutrophils # 10.7 H Lymphocytes # 2.1 Monocytes # 1.1 H Eosinophils # 0.0 Basophils # 0.0 Nucleated Red Blood Cells # 0.0 Sodium Level 144 Potassium Level 4.4 Chloride Level 104 Carbon Dioxide Level 28 Anion Gap 12 Blood Urea Nitrogen 11 Creatinine 0.82 Est Glomerular Filtrat Rate mL/min > 60 Glucose Level 123 Calcium Level 9.3 Phosphorus Level 4.9 Magnesium Level 2.2 Total Bilirubin 0.9 Direct Bilirubin 0.00 Indirect Bilirubin 0.9 Aspartate Amino Transf (AST/SGOT) 56 H Alanine Aminotransferase (ALT/SGPT) 88 H Alkaline Phosphatase 72 Total Protein 7.5 Albumin 4.1 Globulin 3.40 H Albumin/Globulin Ratio 1.20 Medications Medication Current Medications IV Flush (NS 3 ml) 3 ml PER PROTOCOL IV ; Start 01/25/19 at 05:30 Ondansetron HCl (Zofran Inj) 4 mg Q6H PRN IV NAUSEA/VOMITING; Start 01/25/19 at 05:30 Ketorolac Tromethamine (Toradol) 30 mg Q6H PRN IV PAIN LEVEL 1-3 Last administered on 01/25/19at 17:33; Admin Dose 30 MG; Start 01/25/19 at 05:30; Stop 01/28/19 at 05:29 Morphine Sulfate (morphine) 2 mg Q4H PRN IV SEVERE PAIN LEVEL 7-10 Last administered on 01/26/19at 12:09; Admin Dose 2 MG; Start 01/25/19 at 06:03 Ampicillin Sodium/ Sulbactam Sodium 100 ml @ 200 mls/hr Q6H IVPB Last administered on 01/26/19at 05:42; Admin Dose 200 MLS/HR; Start 01/25/19 at 18:00; Stop 01/26/19 at 17:59 Hydromorphone HCl (Dilaudid) 0.5 mg Q6H PRN IV PAIN LEVEL 6-10 Last administered on 01/26/19at 09:55; Admin Dose 0.5 MG; Start 01/25/19 at 16:30 Acetaminophen/ Hydrocodone Bitart ([place]ier (10/325)) 1 tab Q6H PRN PO PAIN; Start 01/25/19 at 16:30 Diphenhydramine HCl (Benadryl) 25 mg Q6H PRN IV ITCHING; Start 01/25/19 at 1 6:30 Lactated Ringer's 1,000 ml @ 100 mls/hr Q10H IV Last administered on 01/26/19at 02:31; Admin Dose 100 MLS/HR; Start 01/25/19 at 16:25 Heparin Sodium (Porcine) (Heparin (5000 Units/1ml)) 5,000 unit Q12 SC Last administered on 01/26/19at 08:29; Admin Dose 5,000 UNIT; Start 01/25/19 at 21:00 PIETRO ALVAREZ NP Jan 26, 2019 12:23
[2019-01-26 14:14] VITALS: BP 162/75; PULSE 88; RESP 16
[2019-01-26] MEDS: HYDROmorphONE 1 MG/ML SYG IV PRN ×2 (16:00→23:09)
--- NOTE | 2019-01-26 18:29 | CONS ---
Assessment/Plan Assessment/Plan Hospital Course (Demo Recall) ID PRELIMINARY NOTE CURRENT ABX: DAY # 1 => Zosyn s/p Unasyn 01/26/19 0452 01/26/192 SUMMARY HOSPITAL COURSE = HPI * 23 yo M admit with sepsis and acute abdomen -> CT revealed appendicitis. Was started on Zosyn in ED, then given Unasyn pre-operatively. * ID consult has been requested for ABX management. * POD #0=>01/26/19: PROCEDURE PERFORMED: Laparoscopic appendectomy converted to open laparotomy, extensive lysis of adhesions, washout and drain placement. TYPE OF DRAIN: Flat KRISHNA x2, 18-[place]. * DIAGNOSIS * 1. Acute appendicitis. * 2. Morbid obesity with body mass index of 36.7. * 3. Inflammatory mass == per surgical note "rather impossible to have any margins" if resection attempted. Hence, appendix left in place and 2 J/P drains placed. MICRO * 01/26/19 No evidence any cultures obtained during surgical procedure? RADIOLOGY * 01/25/19 CT: IMPRESSION: * 1. Right lower quadrant 2 cm diameter. Structure with thick maldonado and surrounding infiltration which is most consistent with the appendix. The adjacent distal small small bowel wall thickening infiltration. Mild free fluid without a discrete abscess or collection. Relatively large diameter of the appendix is consistent with a surrounding inflammatory mass. Lack of intravenous contrast material limits evaluation for abscess. * 2. Diffuse abdominal lymph nodes, largest in the right lower quadrant. * 3. Enlarged fatty liver. ID ASSESSMENT 23 yo M admit with: 1. Sepsis with fevers, tachycardia, leukocytosis on admission due to #2 2. Acute appendicitis 3. Inflammatory ABD mass 4. Diffuse abdominal lymphadenopathy 5. Transaminitis 6. Fatty Liver 7. Morbid obesity ABX ALLERGIES: KNDA INVASIVES: PIV CURRENT ABX: DAY # 1 =>Zosyn s/p Unasyn ID RECOMMENDATIONS/PLAN: 1. Continue Zosyn 2. No micro available; send KRISHNA ABD fluid drainage x2 (1 from each drain) for micro C&S 3. Per notes -> Patient will need further surgery for appendectomy and inflammatory mass which was not able to be resected. * Thank you - See Dr. Kimball's full note dictation pending. Consultation Date/Type/Reason Admit Date/Time Jan 25, 2019 at 03:12 Initial Consult Date Date/Time of Note DATE: 01/26/19 TIME: 18:07 Exam/Review of Systems Exam Vitals Vital Signs Date Temp Pulse Resp B/P (MAP) Pulse Ox O2 O2 Flow FiO2 Time Delivery Rate 01/26/19 97.5 88 16 162/75 95 Room Air 14:14 (104) 01/26/19 2.0 08:00 Intake and Output 01/25/19 01/25/19 01/26/19 1515:00 23:00 07:00 IntakeIntake Total 3600 ml 500 ml OutputOutput Total 429 ml 435 ml BalanceBalance 3171 ml 65 ml Results Result Diagram: 01/26/19 0452 01/26/19 0452 Results 24hrs Laboratory Tests Test 01/26/19 04:52 White Blood Count 13.9 H Red Blood Count 4.77 Hemoglobin 14.6 Hematocrit 43.2 Mean Corpuscular Volume 90.6 Mean Corpuscular Hemoglobin 30.6 Mean Corpuscular Hemoglobin Concent 33.8 Red Cell Distribution Width 11.4 L Platelet Count 476 H Mean Platelet Volume 8.8 Immature Granulocytes % 0.500 H Neutrophils % 76.9 Lymphocytes % 15.0 Monocytes % 7.5 Eosinophils % 0.0 Basophils % 0.1 Nucleated Red Blood Cells % 0.0 Immature Granulocytes # 0.070 H Neutrophils # 10.7 H Lymphocytes # 2.1 Monocytes # 1.1 H Eosinophils # 0.0 Basophils # 0.0 Nucleated Red Blood Cells # 0.0 Sodium Level 144 Potassium Level 4.4 Chloride Level 104 Carbon Dioxide Level 28 Anion Gap 12 Blood Urea Nitrogen 11 Creatinine 0.82 Est Glomerular Filtrat Rate mL/min > 60 Glucose Level 123 Calcium Level 9.3 Phosphorus Level 4.9 Magnesium Level 2.2 Total Bilirubin 0.9 Direct Bilirubin 0.00 Indirect Bilirubin 0.9 Aspartate Amino Transf (AST/SGOT) 56 H Alanine Aminotransferase (ALT/SGPT) 88 H Alkaline Phosphatase 72 Total Protein 7.5 Albumin 4.1 Globulin 3.40 H Albumin/Globulin Ratio 1.20 Medications Medication Current Medications IV Flush (NS 3 ml) 3 ml PER PROTOCOL IV ; Start 01/25/19 at 05:30 Ondansetron HCl (Zofran Inj) 4 mg Q6H PRN IV NAUSEA/VOMITING Last administered on 01/26/19at 13:19; Admin Dose 4 MG; Start 01/25/19 at 05:30 Ketorolac Tromethamine (Toradol) 30 mg Q6H PRN IV PAIN LEVEL 1-3 Last administered on 01/25/19at 17:33; Admin Dose 30 MG; Start 01/25/19 at 05:30; Stop 01/28/19 at 05:29 Morphine Sulfate (morphine) 2 mg Q4H PRN IV SEVERE PAIN LEVEL 7-10 Last administered on 01/26/19at 12:09; Admin Dose 2 MG; Start 01/25/19 at 06:03 Acetaminophen/ Hydrocodone Bitart ([place] (10)) 1 tab Q6H PRN PO PAIN; Start 01/25/19 at 16:30 Diphenhydramine HCl (Benadryl) 25 mg Q6H PRN IV ITCHING; Start 01/25/19 at 16:30 Lactated Ringer's 1,000 ml @ 100 mls/hr Q10H IV Last administered on 01/26/19at 12:10; Admin Dose 100 MLS/HR; Start 01/25/19 at 16:25 Heparin Sodium (Porcine) (Heparin (5000 Units/1ml)) 5,000 unit Q12 SC Last administered on 01/26/19at 08:29; Admin Dose 5,000 UNIT; Start 01/25/19 at 21:00 Hydromorphone HCl (Dilaudid) 1 mg Q4H PRN IV PAIN LEVEL 6-10 Last administered on 01/26/19at 16:00; Admin Dose 1 MG; Start 01/26/19 at 12:30 KARIN STANFORD NP Jan 26, 2019 18:19
[2019-01-26] MEDS: PIPER-TAZO 3.375 GM IV (PMX) 100 ML IVPB SCH (19:00)
[2019-01-26 19:32] VITALS: BP 134/88; PULSE 97; RESP 20
[2019-01-26] MEDS: KETOROLAC 30 MG INJ IV PRN (21:02)
--- NOTE | 2019-01-26 21:41 | CONS ---
DATE OF ADMISSION: 01/25/2019 DATE OF CONSULTATION: 01/26/2019 TYPE OF CONSULTATION: Infectious Disease. REASON FOR CONSULTATION: Antibiotic management. HISTORY OF PRESENT ILLNESS: Ernst Allen is a 23-year-old male, who comes in with right-sided abdom inal pain for 2 days' duration. The patient has right groin pain. He has dysuria but no hematuria o r frequency. No abdominal pain, no discharge, no testicular pain. He did have fever at home as well as chills. There is no nausea, vomiting, constipation or diarrhea. PAST MEDICAL HISTORY: Essentially as outlined. FAMILY HISTORY: Noncontributory. SOCIAL HISTORY: He does not smoke, drink or abuse drugs. ALLERGIES: NONE TO PENICILLIN, SULFA OR FOODS. MEDICATIONS: Per chart. REVIEW OF SYSTEMS: Noncontributory. PHYSICAL EXAMINATION: GENERAL: The patient is a well-developed, well-nourished male in no acute distress. VITAL SIGNS: Stable. He is afebrile. LABORATORY DATA: On admission his white count was 14.8, H and H of 15.3 and 44.2, platelet count 470 ,000. BUN and creatinine 11/0.96. He had 62% neutrophils. HOSPITAL COURSE: The patient was diagnosed with appendicitis and was transferred to the emergency ro om, he had right lower quadrant tenderness to palpation. The patient was started on Zosyn. Dr. Phani silveira, surgery, was called. He subsequently called Dr. Maxwell Cohen to see the patient. The asse ssment was acute appendicitis with possible abscess associated inflammation. Plan was laparoscopic a ppendectomy, possibly open, depending on the degree of inflammation the patient may need bowel resect ion. The patient was started on antibiotic therapy. He noted that the white count was almost 15,000 . The patient was on Zosyn. A right lower quadrant structure with thick maldonado and surrounding infil tration most consistent with the appendix, adjacent distal small bowel wall thickening and infiltrati on, mild free fluid without a discrete abscess or collection, relatively large diameter of the append ix is consistent with surrounding inflammatory mass, lack of IV contrast material limits evaluation f or abscess, diffuse abdominal lymph nodes, largest in the right lower quadrant, enlarged fatty liver; this was the reading of the CT scan of the abdomen and pelvis. On the his white count was 13.9 . Urine was negative for nitrite and leukocyte esterase. The patient underwent surgery. Diagnosis postoperative was acute appendicitis, morbid obesity with body mass index of 36.7 and inflammatory ma ss, laparoscopic appendectomy converted to open laparotomy, extensive lysis of adhesions, washout and drain placement. Patient currently has abdominal pain secondary to acute appendicitis or appendecto my. Continue n.p.o. and IV fluids. The patient has leukocytosis, tachycardia, is on antibiotics. H e has elevated transaminitis with enlarged fatty liver. PAST MEDICAL HISTORY: As outlined. FAMILY HISTORY: Noncontributory. SOCIAL HISTORY: He does not smoke, drink or abuse drugs. ALLERGIES: NONE TO PENICILLIN, SULFA OR FOODS. MEDICATIONS: Per chart. REVIEW OF SYSTEMS: As per HPI. PHYSICAL EXAMINATION: GENERAL: The patient is alert, responsive, in some distress. VITAL SIGNS: Stable. He is afebrile. SKIN: Without generalized rash. HEENT: Within normal limits. NECK: Supple. LYMPH NODES: None palpable. CHEST: Decreased breath sounds at the bases. HEART: Without murmur or gallop. ABDOMEN: Soft. It is tender. He has abdominal incision which is clean, dry and intact with a KRISHNA dr ain in place. EXTREMITIES: Without cyanosis, clubbing, or edema. RECTAL AND GENITAL: Deferred. NEUROLOGIC: No focal neurological abnormalities. IMPRESSION AND PLAN: The patient was placed on Unasyn as opposed to Zosyn. At surgery and the surge on found a mass, he suspects possible infectious etiology. I would change the Unasyn to Zosyn or to meropenem. I think Zosyn would probably be adequate. We will await the culture reports; however, I do not see any cultures pending and no pathology specimen. We can try to get some fluid from the KRISHNA drain. I will dictate my findings to the hospitalist and to the aforementioned physicians. Dictated By: MYRNA LEON MD, JD/BRITTA Conf#: [id number] DID#: [id number]
[2019-01-27] MEDS: PIPER-TAZO 3.375 GM IV (PMX) 100 ML IVPB SCH ×5 (00:38→23:47)
[2019-01-27] MEDS: morphine 4 MG/ML VIAL IV PRN ×5 (01:37→21:33)
[2019-01-27 01:57] VITALS: BP 135/78; PULSE 88; RESP 20
[2019-01-27] MEDS: KETOROLAC 30 MG INJ IV PRN (03:16)
[2019-01-27] MEDS: HYDROmorphONE 1 MG/ML SYG IV PRN ×5 (05:14→23:47)
[2019-01-27 07:12] VITALS: BP 134/72; PULSE 86; RESP 18
[2019-01-27] MEDS: HEPARIN 5,000 UNIT/1 ML VIAL SC SCH ×2 (08:17→21:25)
[2019-01-27] MEDS: LACTATED RINGER'S 1,000 ML IV SCH ×4 (08:25→22:47)
--- NOTE | 2019-01-27 09:51 | PN ---
Date/Time of Note Date/Time of Note DATE: 01/27/19 TIME: 09:44 Assessment/Plan Lines/Catheters IV Catheter Type (from Nrsg): Peripheral IV Assessment/Plan Assessment/Plan 23 year old male with M.O admitted with Acute appendicitis, inflammatory mass -- unresectable, some reactive lymph nodes will continue antibiotics and reassess mass via CT with IV and PO contrast. 1. NPO 2. Pain control 3. Oncology consult 4. Antibx - broad spectrum 5. Repeat CT with IV contrast and PO -- possible MRI 6. Continue Drain -- Subjective 24 Hr Interval Summary Pain well controlled, operative findings previously discussed with the pt's Mom and family was reiterated to the patient. Constitutional: improved, ambulates, requiring IVF Feeding: NPO Pain Control: well controlled Exam/Review of Systems Vital Signs Vitals Vital Signs Date Temp Pulse Resp B/P (MAP) Pulse Ox O2 O2 Flow FiO2 Time Delivery Rate 01/27/19 Nasal 2.0 08:00 Cannula 01/27/19 98.2 86 18 134/72 96 07:12 (92) Intake and Output 01/26/19 01/26/19 01/27/19 1515:00 23:00 07:00 IntakeIntake Total 800 ml 610 ml 100 ml OutputOutput Total 560 ml 685 ml 290 ml BalanceBalance 240 ml -75 ml -190 ml Results Result Diagram: 01/27/19 0506 01/27/19 0506 PHAM MCINTYRE MD Jan 27, 2019 09:51
[2019-01-27] MEDS ORDERED: LIDOCAINE 1% (MPF) 5 ML VIAL SC ONE (11:30)
[2019-01-27 13:20] VITALS: BP 129/56; PULSE 76; RESP 18
--- NOTE | 2019-01-27 15:42 | PN ---
Date/Time of Note Date/Time of Note DATE: 01/27/19 TIME: 15:36 Assessment/Plan VTE Prophylaxis Risk score (from Ns)>0 risk: 7 SCD applied (from Ns): No SCD contraindicated: low risk/ambulating Pharmacological prophylaxis: NA/contraindicated Pharm contraindication: low risk/ambulating Lines/Catheters IV C[facility] Type (from [facility]): Peripheral IV Assessment/Plan Assessment/Plan 23 yo obese man with no major PMH presents with acute appendicitis; unable to surgically remove appendix. #Acute appendicitis - Taken to OR on 01/25, appendix surrounded by adhesions, unable to be removed. - For now will continue IV antibiotics. - Diet per surgeon. - IV analgesics. - Will follow abdominal fluid cultures. #Hepatic steatosis - Associated with elevated AST/ALT - Due to obesity Result Diagram: 01/27/19 0506 01/27/19 0506 Subjective 24 Hr Interval Summary Free Text/Dictation No acute overnight events. Patient awake and alert. No acute complaints. PICC line placement today. Exam/Review of Systems Exam Vitals Vital Signs Date Temp Pulse Resp B/P (MAP) Pulse Ox O2 O2 Flow FiO2 Time Delivery Rate 01/27/19 97.6 76 18 129/56 99 13:20 (80) 01/27/19 Nasal 2.0 08:00 Cannula Intake and Output 01/26/19 01/26/19 01/27/19 1515:00 23:00 07:00 IntakeIntake Total 800 ml 610 ml 100 ml OutputOutput Total 560 ml 685 ml 290 ml BalanceBalance 240 ml -75 ml -190 ml Exam Gen: Obese man awake and alert, no acute distress. Eyes: No icterus HEENT: Moist mucous membranes, clear oropharynx Card: Regular rate and rhythm, no murmurs Pulm: Clear to auscultation bilaterally. Abd: Distended, slightly firm. Midline incision with clean dressing and lap scars also well dressed. Two KRISHNA drains with serosanguineous output. Ext: No cyanosis/clubbing/edema. Results Results 24hrs Laboratory Tests Test 01/27/19 05:06 White Blood Count 14.1 H Red Blood Count 4.52 L Hemoglobin 13.7 L Hematocrit 41.4 L Mean Corpuscular Volume 91.6 Mean Corpuscular Hemoglobin 30.3 Mean Corpuscular Hemoglobin Concent 33.1 Red Cell Distribution Width 11.5 Platelet Count 475 H Mean Platelet Volume 8.9 Immature Granulocytes % 0.600 H Neutrophils % 73.4 Lymphocytes % 16.5 Monocytes % 8.4 Eosinophils % 0.7 Basophils % 0.4 Nucleated Red Blood Cells % 0.0 Immature Granulocytes # 0.090 H Neutrophils # 10.3 H Lymphocytes # 2.3 Monocytes # 1.2 H Eosinophils # 0.1 Basophils # 0.1 Nucleated Red Blood Cells # 0.0 Sodium Level 143 Potassium Level 4.3 Chloride Level 104 Carbon Dioxide Level 32 H Anion Gap 7 Blood Urea Nitrogen 15 Creatinine 0.90 Est Glomerular Filtrat Rate mL/min > 60 Glucose Level 119 Calcium Level 9.2 Total Bilirubin 0.6 Direct Bilirubin 0.00 Indirect Bilirubin 0.6 Aspartate Amino Transf (AST/SGOT) 58 H Alanine Aminotransferase (ALT/SGPT) 71 H Alkaline Phosphatase 64 Total Protein 6.9 Albumin 3.7 Globulin 3.20 Albumin/Globulin Ratio 1.15 Medications Medication Current Medications IV Flush (NS 3 ml) 3 ml PER PROTOCOL IV ; Start 01/25/19 at 05:30 Ondansetron HCl (Zofran Inj) 4 mg Q6H PRN IV NAUSEA/VOMITING Last administered on 01/26/19at 13:19; Admin Dose 4 MG; Start 01/25/19 at 05:30 Ketorolac Tromethamine (Toradol) 30 mg Q6H PRN IV PAIN LEVEL 1-3 Last administered on 01/27/19at 03:16; Admin Dose 30 MG; Start 01/25/19 at 05:30; Stop 01/28/19 at 05:29 Morphine Sulfate (morphine) 2 mg Q4H PRN IV SEVERE PAIN LEVEL 7-10 Last administered on 01/27/19at 11:37; Admin Dose 2 MG; Start 01/25/19 at 06:03 Acetaminophen/ Hydrocodone Bitart ([place] (10/325)) 1 tab Q6H PRN PO PAIN; Start 01/25/19 at 16:30 Diphenhydramine HCl (Benadryl) 25 mg Q6H PRN IV ITCHING; Start 01/25/19 at 16:30 Lactated Ringer's 1,000 ml @ 100 mls/hr Q10H IV Last administered on 01/27/19at 09:49; Admin Dose 100 MLS/HR; Start 01/25/19 at 16:25 Heparin Sodium (Porcine) (Heparin (5000 Units/1ml)) 5,000 unit Q12 SC Last administered on 01/27/19at 08:17; Admin Dose 5,000 UNIT; Start 01/25/19 at 21:00 Hydromorphone HCl (Dilaudid) 1 mg Q4H PRN IV PAIN LEVEL 6-10 Last administered on 01/27/19at 13:51; Admin Dose 1 MG; Start 01/26/19 at 12:30 Piperacillin Sod/ Tazobactam Sod 100 ml @ 200 mls/hr Q6 IVPB Last administered on 01/27/19at 11:38; Admin Dose 200 MLS/HR; Start 01/26/19 at 18:30 Simethicone (Mylicon) 80 mg Q6H PRN GTB DISTENSION/GAS/BLOATING; Start 01/27/19 at 14:00 PETE DUQUE MD Jan 27, 2019 15:42
--- NOTE | 2019-01-27 19:24 | PN ---
DATE: 01/27/2019 SUBJECTIVE: Patient is awake, feels uncomfortable because of the gas pain. He is in no distress, no fevers. Family at bedside. WBC 14.1, platelets 475, no shift, no bands. BUN 15, creatinine 0.90. Intraabdominal fluid cultures pending. ANTIMICROBIALS: The patient is on Zosyn. PHYSICAL EXAMINATION: GENERAL: This is well-developed, well-nourished young man who is alert, in no distress. HEENT: Head atraumatic, normocephalic. NECK: Supple. CHEST: Rise symmetrical. Breath sounds clear, diminished to bases. HEART: S1, S2. ABDOMEN: Distended. Bowel tones hypoactive. EXTREMITIES: Without cyanosis. ASSESSMENT: 1. Acute appendicitis with inflammatory mass, status post laparoscopic appendectomy converted to ope n laparotomy on 01/25/2019. 2. Morbid obesity. 3. Unresectable inflammatory mass with some reactive lymph nodes. PLAN: The patient remains stable. Surgical recommendations noted. Plan to keep him on antibiotics and repeat CT with IV and p.o. contrast. Also, there is a recommendation for oncology evaluation. Dictated By: RAE ARANA SURGICAL PATHOLOGIST for MYRNA LEON MD NI/NTS Conf#: [id number] DID#: [id number]
[2019-01-27 19:51] VITALS: BP 138/66; PULSE 92; RESP 18
[2019-01-28 01:50] VITALS: BP 127/69; PULSE 86; RESP 18
[2019-01-28] MEDS: morphine 4 MG/ML VIAL IV PRN ×4 (02:04→20:51)
[2019-01-28] MEDS: HYDROmorphONE 1 MG/ML SYG IV PRN ×5 (04:38→22:51)
[2019-01-28] MEDS: PIPER-TAZO 3.375 GM IV (PMX) 100 ML IVPB SCH ×4 (05:54→23:00)
[2019-01-28 07:16] VITALS: BP 139/75; PULSE 79; RESP 16
[2019-01-28] MEDS: HEPARIN 5,000 UNIT/1 ML VIAL SC SCH ×2 (08:24→20:50)
[2019-01-28] MEDS: LACTATED RINGER'S 1,000 ML IV SCH ×2 (11:00→22:52)
--- NOTE | 2019-01-28 13:13 | CONS ---
Assessment/Plan Assessment/Plan Hospital Course (Demo Recall) SUBJECTIVE: No acute events, sleeping, looks comfortable, no fevers Intraabdominal fluid cultures neg ANTIMICROBIALS: Zosyn. PHYSICAL EXAMINATION: GENERAL: This is well-developed, well-nourished young man who is alert, in no distress. HEENT: Head atraumatic, normocephalic. NECK: Supple. CHEST: Rise symmetrical. Breath sounds clear, diminished to bases. HEART: S1, S2. ABDOMEN: Distended. Bowel tones hypoactive. EXTREMITIES: Without cyanosis. ASSESSMENT: 1. Acute appendicitis with inflammatory mass, status post laparoscopic appendectomy converted to open laparotomy on 01/25/2019. 2. Morbid obesity. 3. Unresectable inflammatory mass with some reactive lymph nodes. PLAN: The patient remains stable. Continue abx, f/u surgical recommendations, pending repeat CT with IV and p.o. contrast? oncology evaluation. Consultation Date/Type/Reason Admit Date/Time Jan 25, 2019 at 03:12 Initial Consult Date Type of Consult id Date/Time of Note DATE: 01/28/19 TIME: 13:12 Exam/Review of Systems Exam Vitals Vital Signs Date Temp Pulse Resp B/P (MAP) Pulse Ox O2 O2 Flow FiO2 Time Delivery Rate 01/28/19 98.6 79 16 139/75 96 Room Air 07:16 (96) 01/27/19 2.0 08:00 Intake and Output 01/27/19 01/27/19 01/28/19 1515:00 23:00 07:00 IntakeIntake Total 1200 ml 1100 ml 750 ml OutputOutput Total 190 ml 95 ml 230 ml BalanceBalance 1010 ml 1005 ml 520 ml Results Result Diagram: 01/27/19 0506 01/27/19 0506 Medications Medication Current Medications IV Flush (NS 3 ml) 3 ml PER PROTOCOL IV ; Start 01/25/19 at 05:30 Ondansetron HCl (Zofran Inj) 4 mg Q6H PRN IV NAUSEA/VOMITING Last administered on 01/26/19at 13:19; Admin Dose 4 MG; Start 01/25/19 at 05:30 Morphine Sulfate (morphine) 2 mg Q4H PRN IV SEVERE PAIN LEVEL 7-10 Last administered on 01/28/19at 07:44; Admin Dose 2 MG; Start 01/25/19 at 06:03 Acetaminophen/ Hydrocodone Bitart ([place] (10)) 1 tab Q6H PRN PO PAIN; Start 01/25/19 at 16:30 Diphenhydramine HCl (Benadryl) 25 mg Q6H PRN IV ITCHING; Start 01/25/19 at 16:30 Lactated Ringer's 1,000 ml @ 100 mls/hr Q10H IV Last administered on 01/28/19 11:00; Admin Dose 100 MLS/HR; Start 01/25/19 at 16:25 Heparin Sodium (Porcine) (Heparin (5000 Units/1ml)) 5,000 unit Q12 SC Last administered on 01/28/19 08:24; Admin Dose 5,000 UNIT; Start 01/25/19 at 21:00 Hydromorphone HCl (Dilaudid) 1 mg Q4H PRN IV PAIN LEVEL 6-10 Last administered on 01/28/19 10:13; Admin Dose 1 MG; Start 01/26/19 at 12:30 Piperacillin Sod/ Tazobactam Sod 100 ml @ 200 mls/hr Q6 IVPB Last administered on 01/28/19 11:19; Admin Dose 200 MLS/HR; Start 01/26/19 at 18:30 Simethicone (Mylicon) 80 mg Q6H PRN GTB DISTENSION/GAS/BLOATING Last administered on 01/28/19 10:13; Admin Dose 80 MG; Start 01/27/19 at 14:00 RAE ARANA NP Jan 28, 2019 13:13
[2019-01-28 14:00] VITALS: BP 141/86; PULSE 86; RESP 16
--- NOTE | 2019-01-28 14:43 | PN ---
Date/Time of Note Date/Time of Note DATE: 01/28/19 TIME: 14:40 Assessment/Plan VTE Prophylaxis Risk score (from Ns)>0 risk: 7 SCD applied (from Ns): Yes Pharmacological prophylaxis: NA/contraindicated Pharm contraindication: low risk/ambulating Lines/Catheters IV Catheter Type (from Nrsg): PICC Line Central line still needed: Yes Assessment/Plan Assessment/Plan 23 yo obese man with no major PMH presents with acute appendicitis; unable to surgically remove appendix. #Acute appendicitis - Taken to OR on 01/25, appendix surrounded by adhesions, unable to be removed. - For now will continue IV antibiotics. - Diet per surgeon. - IV analgesics. - Will follow abdominal fluid cultures. - Will consult oncology for suspicion of possible abdominal lymphoma. #Hepatic steatosis - Associated with elevated AST/ALT - Due to obesity Result Diagram: 01/27/19 0506 01/27/19 0506 Subjective 24 Hr Interval Summary Free Text/Dictation No acute overnight events. Pain adequately controlled on current regimen. Patient passing gas regularly. No stool yet. Still NPO. Still feels abdominal bloating. He reports one week of anorexia, abdominal bloating, and night sweats prior to his hospital presentation for appendicitis. Exam/Review of Systems Exam Vitals Vital Signs Date Temp Pulse Resp B/P (MAP) Pulse Ox O2 O2 Flow FiO2 Time Delivery Rate 01/28/19 98.6 79 16 139/75 96 Room Air 07:16 (96) 01/27/19 2.0 08:00 Intake and Output 01/27/19 01/27/19 01/28/19 1515:00 23:00 07:00 IntakeIntake Total 1200 ml 1100 ml 750 ml OutputOutput Total 190 ml 95 ml 230 ml BalanceBalance 1010 ml 1005 ml 520 ml Exam Gen: Obese man awake and alert, no acute distress. Eyes: No icterus HEENT: Moist mucous membranes, clear oropharynx Card: Regular rate and rhythm, no murmurs Pulm: Clear to auscultation bilaterally. Abd: Distended, slightly firm. Midline incision with clean dressing and lap scars also well dressed. Two KRISHNA drains with serous output. Ext: No cyanosis/clubbing/edema. Lymph: No palpable lymphadenopathy in the cervical, axillary, or inguinal areas. Medications Medication Current Medications IV Flush (NS 3 ml) 3 ml PER PROTOCOL IV ; Start 01/25/19 at 05:30 Ondansetron HCl (Zofran Inj) 4 mg Q6H PRN IV NAUSEA/VOMITING Last administered on 01/26/19 13:19; Admin Dose 4 MG; Start 01/25/19 at 05:30 Morphine Sulfate (morphine) 2 mg Q4H PRN IV SEVERE PAIN LEVEL 7-10 Last administered on 01/28/19 07:44; Admin Dose 2 MG; Start 01/25/19 at 06:03 Acetaminophen/ Hydrocodone Bitart ([place] (10/325)) 1 tab Q6H PRN PO PAIN; Start 01/25/19 at 16:30 Diphenhydramine HCl (Benadryl) 25 mg Q6H PRN IV ITCHING; Start 01/25/19 at 16:30 Lactated Ringer's 1,000 ml @ 100 mls/hr Q10H IV Last administered on 01/28/19 11:00; Admin Dose 100 MLS/HR; Start 01/25/19 at 16:25 Heparin Sodium (Porcine) (Heparin (5000 Units/1ml)) 5,000 unit Q12 SC Last administered on 01/28/19 08:24; Admin Dose 5,000 UNIT; Start 01/25/19 at 21:00 Hydromorphone HCl (Dilaudid) 1 mg Q4H PRN IV PAIN LEVEL 6-10 Last administered on 01/28/19 10:13; Admin Dose 1 MG; Start 01/26/19 at 12:30 Piperacillin Sod/ Tazobactam Sod 100 ml @ 200 mls/hr Q6 IVPB Last administered on 01/28/19 11:19; Admin Dose 200 MLS/HR; Start 01/26/19 at 18:30 Simethicone (Mylicon) 80 mg Q6H PRN GTB DISTENSION/GAS/BLOATING Last administered on 01/28/19 10:13; Admin Dose 80 MG; Start 01/27/19 at 14:00 PETE UDQUE MD Jan 28, 2019 14:43
--- NOTE | 2019-01-28 16:37 | CONS ---
Assessment/Plan Assessment/Plan Assessment/Plan (Daily) 23 yo man with RLQ mass that could not be resected. Local nodes also seen. Thee is no tissue, so a diagnosis is not made. At this point an unusual presentation of appendicitis, intraabdominal tuberc ulosis and various tumors, such as adenocarcinoma or lymphoma are all possible. He is on antibiotics now. If everything resolves with antibiotic treatment, then he could be followed. If not, then tissue would be needed. I do not find any peripheral adenopathy that would be appropriate for biopsy now. The blood work is nonspecific. Note that the mildly elevated transaminases were previously noted and are likely due to fatty liver. I will follow with you. Consultation Date/Type/Reason Admit Date/Time Jan 25, 2019 at 03:12 Date of Consultation: Jan 28, 2019 Type of Consult Oncology Reason for Consultation mass in the abdomen Requesting Provider: PETE DUQUE MD Date/Time of Note DATE: 01/28/19 TIME: 16:26 Hx of Present Illness 23 yo man taken to surgery for presumed appendicitis by laparoscopy but it had to be converted to open procedure. The RLQ mass was very large and was associated with local adenopathy. Fluid is draining through the surgical drains but no tissue was obtained. He apparently has only had abdominal discomfort for a week and a half but fever started about four days ago. There is no cough or sputum production. Other medical history is only notable for fatty liver. He was advised to change his diet and lose weight but did not. Past Medical History Medical History: other (See HPI) Home Meds Active Scripts Sodium Chloride (Saline Nasal Tiller) 45 Ml Tiller, 2 SPRAYS NS Q2H PRN for NASAL CONGESTION, #1 BOT Prov:WANDA GRAVES CONTROL SPECIALIST 03/01/15 Ibuprofen* (Motrin*) 800 Mg Tab, 800 MG PO Q6H PRN for PAIN AND OR ELEVATED TEMP, #30 TAB Prov:WANDA GRAVES. CONTROL SPECIALIST 03/01/15 Medications Current Medications IV Flush (NS 3 ml) 3 ml PER PROTOCOL IV ; Start 01/25/19 at 05:30 Ondansetron HCl (Zofran Inj) 4 mg Q6H PRN IV NAUSEA/VOMITING Last administered on 01/26/19at 13:19; Admin Dose 4 MG; Start 01/25/19 at 05:30 Morphine Sulfate (morphine) 2 mg Q4H PRN IV SEVERE PAIN LEVEL 7-10 Last administered on 01/28/19at 07:44; Admin Dose 2 MG; Start 01/25/19 at 06:03 Acetaminophen/ Hydrocodone Bitart ([place] (10/325)) 1 tab Q6H PRN PO PAIN; Start 01/25/19 at 16:30 Diphenhydramine HCl (Benadryl) 25 mg Q6H PRN IV ITCHING; Start 01/25/19 at 16:30 Lactated Ringer's 1,000 ml @ 100 mls/hr Q10H IV Last administered on 01/28/19 11:00; Admin Dose 100 MLS/HR; Start 01/25/19 at 16:25 Heparin Sodium (Porcine) (Heparin (5000 Units/1ml)) 5,000 unit Q12 SC Last administered on 01/28/19 08:24; Admin Dose 5,000 UNIT; Start 01/25/19 at 21:00 Hydromorphone HCl (Dilaudid) 1 mg Q4H PRN IV PAIN LEVEL 6-10 Last administered on 01/28/19at 14:40; Admin Dose 1 MG; Start 01/26/19 at 12:30 Piperacillin Sod/ Tazobactam Sod 100 ml @ 200 mls/hr Q6 IVPB Last administered on 01/28/19 11:19; Admin Dose 200 MLS/HR; Start 01/26/19 at 18:30 Simethicone (Mylicon) 80 mg Q6H PRN GTB DISTENSION/GAS/BLOATING Last administered on 01/28/19at 10:13; Admin Dose 80 MG; Start 01/27/19 at 14:00 Allergies: Coded Allergies: No Known Allergy (Unverified , 08/08/14) Past Surgical History Past Surgical Hx: other (See HPI) Social History Alcohol Use: none Smoking Status: Never smoker Drug Use: none Exam/Review of Systems Exam Vitals Vital Signs Date Temp Pulse Resp B/P (MAP) Pulse Ox O2 O2 Flow FiO2 Time Delivery Rate 01/28/19 98.7 86 16 141/86 96 14:00 (104) 01/28/19 Room Air 07:16 01/27/19 2.0 08:00 Intake and Output 01/27/19 01/27/19 01/28/19 1515:00 23:00 07:00 IntakeIntake Total 1200 ml 1100 ml 750 ml OutputOutput Total 190 ml 95 ml 230 ml BalanceBalance 1010 ml 1005 ml 520 ml Constitutional: alert, oriented, well developed (overweight) Head: normocephalic Eyes: nl conjunctiva ENMT: nl lips & teeth Neck: supple, non-tender Respiratory: clear to auscultation Cardiovascular: regular rate and rhythm Gastrointestinal: soft, non-tender, other (drains and surgical wounds noted) Extremities: normal pulses Neurological: nl mental status, nl speech, nl strength Lymph: nl lymph nodes Results Result Diagram: 01/27/19 0506 01/27/19 0506 Medications Medication Current Medications IV Flush (NS 3 ml) 3 ml PER PROTOCOL IV ; Start 01/25/19 at 05:30 Ondansetron HCl (Zofran Inj) 4 mg Q6H PRN IV NAUSEA/VOMITING Last administered on 01/26/19at 13:19; Admin Dose 4 MG; Start 01/25/19 at 05:30 Morphine Sulfate (morphine) 2 mg Q4H PRN IV SEVERE PAIN LEVEL 7-10 Last administered on 01/28/19at 07:44; Admin Dose 2 MG; Start 01/25/19 at 06:03 Acetaminophen/ Hydrocodone Bitart ([place] (10/325)) 1 tab Q6H PRN PO PAIN; Start 01/25/19 at 16:30 Diphenhydramine HCl (Benadryl) 25 mg Q6H PRN IV ITCHING; Start 01/25/19 at 16:30 Lactated Ringer's 1,000 ml @ 100 mls/hr Q10H IV Last administered on 01/28/19at 11:00; Admin Dose 100 MLS/HR; Start 01/25/19 at 16:25 Heparin Sodium (Porcine) (Heparin (5000 Units/1ml)) 5,000 unit Q12 SC Last administered on 01/28/19at 08:24; Admin Dose 5,000 UNIT; Start 01/25/19 at 21:00 Hydromorphone HCl (Dilaudid) 1 mg Q4H PRN IV PAIN LEVEL 6-10 Last administered on 01/28/19at 14:40; Admin Dose 1 MG; Start 01/26/19 at 12:30 Piperacillin Sod/ Tazobactam Sod 100 ml @ 200 mls/hr Q6 IVPB Last administered on 01/28/19at 11:19; Admin Dose 200 MLS/HR; Start 01/26/19 at 18:30 Simethicone (Mylicon) 80 mg Q6H PRN GTB DISTENSION/GAS/BLOATING Last administered on 01/28/19at 10:13; Admin Dose 80 MG; Start 01/27/19 at 14:00 BELINDA LEO MD Jan 28, 2019 16:37
[2019-01-28 19:54] VITALS: BP 133/74; PULSE 102; RESP 18
[2019-01-29] MEDS: LACTATED RINGER'S 1,000 ML IV SCH ×3 (00:25→21:08)
[2019-01-29] MEDS: morphine 4 MG/ML VIAL IV PRN ×2 (01:31→05:33)
[2019-01-29 01:44] VITALS: BP 145/75; PULSE 98; RESP 17
[2019-01-29] MEDS: HYDROmorphONE 1 MG/ML SYG IV PRN ×5 (02:51→22:19)
[2019-01-29] MEDS: PIPER-TAZO 3.375 GM IV (PMX) 100 ML IVPB SCH ×4 (05:33→23:52)
[2019-01-29 08:00] VITALS: BP 132/67; PULSE 97; RESP 18
[2019-01-29] MEDS: HEPARIN 5,000 UNIT/1 ML VIAL SC SCH ×2 (08:16→20:06)
--- NOTE | 2019-01-29 11:20 | CONS ---
Assessment/Plan Assessment/Plan Hospital Course (Demo Recall) SUBJECTIVE: All noted. No acute events, looks comfortable, no fevers Intraabdominal fluid cultures neg ANTIMICROBIALS: Zosyn PHYSICAL EXAMINATION: GENERAL: This is well-developed, well-nourished young man who is in no distress. HEENT: Head atraumatic, normocephalic. NECK: Supple. CHEST: Rise symmetrical. Breath sounds clear, diminished to bases. HEART: S1, S2. ABDOMEN: Distended. Bowel tones hypoactive. EXTREMITIES: Without cyanosis. ASSESSMENT: 1. Acute appendicitis with inflammatory mass, status post laparoscopic appendectomy converted to open laparotomy on 01/25/2019. 2. Morbid obesity. 3. Unresectable inflammatory mass with some reactive lymph nodes. PLAN: The patient remains stable. WBC trending down. Oncology rec-s noted, continue abx, f/u surgical recommendations, plan to repeat CT with IV and p.o.contrast Consultation Date/Type/Reason Admit Date/Time Jan 25, 2019 at 03:12 Initial Consult Date Type of Consult id Requesting Provider: PETE DUQUE MD Date/Time of Note DATE: 01/29/19 TIME: 11:18 Exam/Review of Systems Exam Vitals Vital Signs Date Temp Pulse Resp B/P (MAP) Pulse Ox O2 O2 Flow FiO2 Time Delivery Rate 01/29/19 97.8 97 18 132/67 96 Room Air 08:00 (88) 01/27/19 2.0 08:00 Intake and Output 01/28/19 01/28/19 01/29/19 1515:00 23:00 07:00 IntakeIntake Total 700 ml 100 ml 800 ml OutputOutput Total 80 ml 715 ml 315 ml BalanceBalance 620 ml -615 ml 485 ml Results Result Diagram: 01/29/19 0442 01/29/19 0442 Results 24hrs Laboratory Tests Test 01/29/19 04:42 White Blood Count 11.7 H Red Blood Count 4.58 L Hemoglobin 13.7 L Hematocrit 41.3 L Mean Corpuscular Volume 90.2 Mean Corpuscular Hemoglobin 29.9 Mean Corpuscular Hemoglobin Concent 33.2 Red Cell Distribution Width 11.5 Platelet Count 468 H Mean Platelet Volume 8.9 Immature Granulocytes % 0.600 H Neutrophils % 62.6 Lymphocytes % 25.0 Monocytes % 8.4 Eosinophils % 2.8 Basophils % 0.6 Nucleated Red Blood Cells % 0.0 Immature Granulocytes # 0.070 H Neutrophils # 7.3 Lymphocytes # 2.9 Monocytes # 1.0 H Eosinophils # 0.3 Basophils # 0.1 Nucleated Red Blood Cells # 0.0 Sodium Level 142 Potassium Level 3.9 Chloride Level 107 Carbon Dioxide Level 25 Anion Gap 10 Blood Urea Nitrogen 14 Creatinine 0.74 Est Glomerular Filtrat Rate mL/min > 60 Glucose Level 85 Calcium Level 8.7 Phosphorus Level 4.0 Magnesium Level 2.1 Medications Medication Current Medications IV Flush (NS 3 ml) 3 ml PER PROTOCOL IV ; Start 01/25/19 at 05:30 Ondansetron HCl (Zofran Inj) 4 mg Q6H PRN IV NAUSEA/VOMITING Last administered on 01/26/19 13:19; Admin Dose 4 MG; Start 01/25/19 at 05:30 Acetaminophen/ Hydrocodone Bitart ([place] (10/325)) 1 tab Q6H PRN PO PAIN; Start 01/25/19 at 16:30 Diphenhydramine HCl (Benadryl) 25 mg Q6H PRN IV ITCHING; Start 01/25/19 at 16:30 Lactated Ringer's 1,000 ml @ 100 mls/hr Q10H IV Last administered on 01/28/19at 22:52; Admin Dose 100 MLS/HR; Start 01/25/19 at 16:25 Heparin Sodium (Porcine) (Heparin (5000 Units/1ml)) 5,000 unit Q12 SC Last administered on 01/29/19 08:16; Admin Dose 5,000 UNIT; Start 01/25/19 at 21:00 Hydromorphone HCl (Dilaudid) 1 mg Q4H PRN IV PAIN LEVEL 6-10 Last administered on 01/29/19 07:39; Admin Dose 1 MG; Start 01/26/19 at 12:30 Piperacillin Sod/ Tazobactam Sod 100 ml @ 200 mls/hr Q6 IVPB Last administered on 01/29/19 05:33; Admin Dose 200 MLS/HR; Start 01/26/19 at 18:30 Simethicone (Mylicon) 80 mg Q6H PRN GTB DISTENSION/GAS/BLOATING Last administered on 01/28/19at 10:13; Admin Dose 80 MG; Start 01/27/19 at 14:00 Morphine Sulfate (morphine) 2 mg Q4H PRN IV SEVERE PAIN LEVEL 7-10; Start 01/29/19 at 06:00 RAE ARANA NP Jan 29, 2019 11:20
[2019-01-29 13:37] VITALS: BP 133/67; PULSE 88; RESP 18
--- NOTE | 2019-01-29 13:50 | PN ---
Date/Time of Note Date/Time of Note DATE: 01/29/19 TIME: 13:49 Assessment/Plan VTE Prophylaxis Risk score (from Ns)>0 risk: 7 SCD applied (from Ns): Yes Pharmacological prophylaxis: NA/contraindicated Pharm contraindication: low risk/ambulating Lines/Catheters IV Catheter Type (from [facility]): PICC Line Central line still needed: Yes Assessment/Plan Assessment/Plan 23 yo obese man with no major PMH presents with acute appendicitis; unable to surgically remove appendix. #Acute appendicitis - Taken to OR on 01/25, appendix surrounded by adhesions, unable to be removed. - For now will continue IV antibiotics. - Diet per surgeon. - IV analgesics. - Will follow abdominal fluid cultures. - Oncology consulted. Can't do much without tissue. #Hepatic steatosis - Associated with elevated AST/ALT - Due to obesity Result Diagram: 01/29/1944101/29/19441 Subjective 24 Hr Interval Summary Free Text/Dictation No acute overnight events. Thirsty. Not hungry yet. Pain well controlled. Exam/Review of Systems Exam Vitals Vital Signs Date Temp Pulse Resp B/P (MAP) Pulse Ox O2 O2 Flow FiO2 Time Delivery Rate 01/29/19 97.9 88 18 133/67 97 Room Air 13:37 (89) 01/27/19 2.0 08:00 Intake and Output 01/28/19 01/28/19 01/29/19 1515:00 23:00 07:00 IntakeIntake Total 700 ml 100 ml 800 ml OutputOutput Total 80 ml 715 ml 315 ml BalanceBalance 620 ml -615 ml 485 ml Exam Gen: Obese man awake and alert, no acute distress. Eyes: No icterus HEENT: Moist mucous membranes, clear oropharynx Card: Regular rate and rhythm, no murmurs Pulm: Clear to auscultation bilaterally. Abd: Distended, slightly firm. Midline incision with clean dressing and lap scars also well dressed. Two KRISHNA drains with serous output. Ext: No cyanosis/clubbing/edema. Lymph: No palpable lymphadenopathy in the cervical, axillary, or inguinal areas. Results Results 24hrs Laboratory Tests Test 01/29/19 04:42 White Blood Count 11.7 H Red Blood Count 4.58 L Hemoglobin 13.7 L Hematocrit 41.3 L Mean Corpuscular Volume 90.2 Mean Corpuscular Hemoglobin 29.9 Mean Corpuscular Hemoglobin Concent 33.2 Red Cell Distribution Width 11.5 Platelet Count 468 H Mean Platelet Volume 8.9 Immature Granulocytes % 0.600 H Neutrophils % 62.6 Lymphocytes % 25.0 Monocytes % 8.4 Eosinophils % 2.8 Basophils % 0.6 Nucleated Red Blood Cells % 0.0 Immature Granulocytes # 0.070 H Neutrophils # 7.3 Lymphocytes # 2.9 Monocytes # 1.0 H Eosinophils # 0.3 Basophils # 0.1 Nucleated Red Blood Cells # 0.0 Sodium Level 142 Potassium Level 3.9 Chloride Level 107 Carbon Dioxide Level 25 Anion Gap 10 Blood Urea Nitrogen 14 Creatinine 0.74 Est Glomerular Filtrat Rate mL/min > 60 Glucose Level 85 Calcium Level 8.7 Phosphorus Level 4.0 Magnesium Level 2.1 Medications Medication Current Medications IV Flush (NS 3 ml) 3 ml PER PROTOCOL IV ; Start 01/25/19 at 05:30 Ondansetron HCl (Zofran Inj) 4 mg Q6H PRN IV NAUSEA/VOMITING Last administered on 01/26/19at 13:19; Admin Dose 4 MG; Start 01/25/19 at 05:30 Acetaminophen/ Hydrocodone Bitart ([place] (10/325)) 1 tab Q6H PRN PO PAIN; Start 01/25/19 at 16:30 Diphenhydramine HCl (Benadryl) 25 mg Q6H PRN IV ITCHING; Start 01/25/19 at 16:30 Lactated Ringer's 1,000 ml @ 100 mls/hr Q10H IV Last administered on 01/29/19at 11:22; Admin Dose 100 MLS/HR; Start 01/25/19 at 16:25 Heparin Sodium (Porcine) (Heparin (5000 Units/1ml)) 5,000 unit Q12 SC Last ad ministered on 01/29/19at 08:16; Admin Dose 5,000 UNIT; Start 01/25/19 at 21:00 Hydromorphone HCl (Dilaudid) 1 mg Q4H PRN IV PAIN LEVEL 6-10 Last administered on 01/29/19at 12:05; Admin Dose 1 MG; Start 01/26/19 at 12:30 Piperacillin Sod/ Tazobactam Sod 100 ml @ 200 mls/hr Q6 IVPB Last administered on 01/29/19at 12:05; Admin Dose 200 MLS/HR; Start 01/26/19 at 18:30 Simethicone (Mylicon) 80 mg Q6H PRN GTB DISTENSION/GAS/BLOATING Last administered on 01/28/19at 10:13; Admin Dose 80 MG; Start 01/27/19 at 14:00 Morphine Sulfate (morphine) 2 mg Q4H PRN IV SEVERE PAIN LEVEL 7-10; Start 01/29/19 at 06:00 PETE DUQUE MD Jan 29, 2019 13:50
--- NOTE | 2019-01-29 17:10 | PN ---
Date/Time of Note Date/Time of Note DATE: 01/29/19 TIME: 17:04 Assessment/Plan VTE Prophylaxis Risk score (from Ns)>0 risk: 7 SCD applied (from Ns): Yes Pharmacological prophylaxis: heparin Lines/Catheters IV Catheter Type (from Nrs): PICC Line Central line still needed: Yes Assessment/Plan Assessment/Plan WBC is slowly coming down and is nearly normal. There is no fever. Reactive thrombocytosis remains mild. Hgb is normal but slightly lower than admission. CT is going to be done tomorrow. Even if this appears to be an exuberant inflammatory reaction, he will need to be followed to be sure everything resolves. At this point there is concern that he might have a tumor but no proof of that. A biopsy will be required unless everything revert to normal over the next several weeks. I did discuss this with the patient and his mother. They are obviously worried that this could be a cancer, but I told them there is no proof of that presently. Result Diagram: 01/29/19 0442 01/29/19 0442 Results 24hrs Laboratory Tests Test 01/29/19 04:42 White Blood Count 11.7 H Red Blood Count 4.58 L Hemoglobin 13.7 L Hematocrit 41.3 L Mean Corpuscular Volume 90.2 Mean Corpuscular Hemoglobin 29.9 Mean Corpuscular Hemoglobin Concent 33.2 Red Cell Distribution Width 11.5 Platelet Count 468 H Mean Platelet Volume 8.9 Immature Granulocytes % 0.600 H Neutrophils % 62.6 Lymphocytes % 25.0 Monocytes % 8.4 Eosinophils % 2.8 Basophils % 0.6 Nucleated Red Blood Cells % 0.0 Immature Granulocytes # 0.070 H Neutrophils # 7.3 Lymphocytes # 2.9 Monocytes # 1.0 H Eosinophils # 0.3 Basophils # 0.1 Nucleated Red Blood Cells # 0.0 Sodium Level 142 Potassium Level 3.9 Chloride Level 107 Carbon Dioxide Level 25 Anion Gap 10 Blood Urea Nitrogen 14 Creatinine 0.74 Est Glomerular Filtrat Rate mL/min > 60 Glucose Level 85 Calcium Level 8.7 Phosphorus Level 4.0 Magnesium Level 2.1 Subjective 24 Hr Interval Summary Free Text/Dictation Pt is feeling better Exam/Review of Systems Exam Vitals Vital Signs Date Temp Pulse Resp B/P (MAP) Pulse Ox O2 O2 Flow FiO2 Time Delivery Rate 01/29/19 97.9 88 18 133/67 97 Room Air 13:37 (89) 01/27/19 2.0 08:00 Intake and Output 01/28/19 01/28/19 01/29/19 1414:59 22:59 06:59 IntakeIntake Total 700 ml 100 ml 800 ml OutputOutput Total 80 ml 715 ml 315 ml BalanceBalance 620 ml -615 ml 485 ml Constitutional: alert, oriented, obese Head: normocephalic Neck: supple Respiratory: clear to auscultation Cardiovascular: regular rate and rhythm Gastrointestinal: soft Results Results 24hrs Laboratory Tests Test 01/29/19 04:42 White Blood Count 11.7 H Red Blood Count 4.58 L Hemoglobin 13.7 L Hematocrit 41.3 L Mean Corpuscular Volume 90.2 Mean Corpuscular Hemoglobin 29.9 Mean Corpuscular Hemoglobin Concent 33.2 Red Cell Distribution Width 11.5 Platelet Count 468 H Mean Platelet Volume 8.9 Immature Granulocytes % 0.600 H Neutrophils % 62.6 Lymphocytes % 25.0 Monocytes % 8.4 Eosinophils % 2.8 Basophils % 0.6 Nucleated Red Blood Cells % 0.0 Immature Granulocytes # 0.070 H Neutrophils # 7.3 Lymphocytes # 2.9 Monocytes # 1.0 H Eosinophils # 0.3 Basophils # 0.1 Nucleated Red Blood Cells # 0.0 Sodium Level 142 Potassium Level 3.9 Chloride Level 107 Carbon Dioxide Level 25 Anion Gap 10 Blood Urea Nitrogen 14 Creatinine 0.74 Est Glomerular Filtrat Rate mL/min > 60 Glucose Level 85 Calcium Level 8.7 Phosphorus Level 4.0 Magnesium Level 2.1 Medications Medication Current Medications IV Flush (NS 3 ml) 3 ml PER PROTOCOL IV ; Start 01/25/19 at 05:30 Ondansetron HCl (Zofran Inj) 4 mg Q6H PRN IV NAUSEA/VOMITING Last administered on 01/26/19at 13:19; Admin Dose 4 MG; Start 01/25/19 at 05:30 Acetaminophen/ Hydrocodone Bitart ([place] (10/325)) 1 tab Q6H PRN PO PAIN; Start 01/25/19 at 16:30 Diphenhydramine HCl (Benadryl) 25 mg Q6H PRN IV ITCHING; Start 01/25/19 at 16:30 Lactated Ringer's 1,000 ml @ 100 mls/hr Q10H IV Last administered on 01/29/19 11:22; Admin Dose 100 MLS/HR; Start 01/25/19 at 16:25 Heparin Sodium (Porcine) (Heparin (5000 Units/1ml)) 5,000 unit Q12 SC Last administered on 01/29/19 08:16; Admin Dose 5,000 UNIT; Start 01/25/19 at 21:00 Hydromorphone HCl (Dilaudid) 1 mg Q4H PRN IV PAIN LEVEL 6-10 Last administered on 01/29/19at 12:05; Admin Dose 1 MG; Start 01/26/19 at 12:30 Piperacillin Sod/ Tazobactam Sod 100 ml @ 200 mls/hr Q6 IVPB Last administered on 01/29/19 12:05; Admin Dose 200 MLS/HR; Start 01/26/19 at 18:30 Simethicone (Mylicon) 80 mg Q6H PRN GTB DISTENSION/GAS/BLOATING Last administered on 01/28/19at 10:13; Admin Dose 80 MG; Start 01/27/19 at 14:00 Morphine Sulfate (morphine) 2 mg Q4H PRN IV SEVERE PAIN LEVEL 7-10; Start 01/29/19 at 06:00 BELINDA LEO MD Jan 29, 2019 17:10
[2019-01-29 20:00] VITALS: BP 139/74; PULSE 98; RESP 18
[2019-01-29] MEDS: morphine 2 MG INJ IV PRN (23:55)
[2019-01-30 02:02] VITALS: BP 133/72; PULSE 88; RESP 19
[2019-01-30] MEDS: HYDROmorphONE 1 MG/ML SYG IV PRN (03:18)
[2019-01-30] MEDS: PIPER-TAZO 3.375 GM IV (PMX) 100 ML IVPB SCH ×4 (05:28→23:10)
[2019-01-30 07:56] VITALS: BP 130/68; PULSE 83; RESP 18
[2019-01-30] MEDS ORDERED: SOD CHLORIDE 0.9% 100 ML ONE (07:56)
[2019-01-30] MEDS ORDERED: IOHEXOL 300MG/ML 150 ML BTL ONE (07:56)
[2019-01-30] MEDS: HEPARIN 5,000 UNIT/1 ML VIAL SC SCH ×2 (08:05→20:20)
[2019-01-30] MEDS: LACTATED RINGER'S 1,000 ML IV SCH ×3 (08:07→20:20)
[2019-01-30] MEDS: morphine 2 MG INJ IV PRN (11:52)
--- NOTE | 2019-01-30 12:33 | CONS ---
Assessment/Plan Assessment/Plan Hospital Course (Demo Recall) SUBJECTIVE: Patient is status post CT abdomen this morning sleeping in no distress and no fevers still with moderate amount of output from JPs CT abdomen: Status post midline laparotomy and placement of surgical drains entering the right lower quadrant and left central abdomen. Fluid-filled loops of small bowel with greater degree of hyper enhancement and narrowing in the distal small bowel loops within the right lower quadrant, in the region of removed inflammatory appendix. Close clinical attention may be warranted as region at risk for adhesions. Mild stranding of the mesenteric fat. No definite evidence for rim-enhancing fluid collection. Severe hepatosteatosis. Bilateral small pleural effusions with adjacent atelectasis. Intraabdominal fluid cultures neg ANTIMICROBIALS: Zosyn PHYSICAL EXAMINATION: GENERAL: This is well-developed, well-nourished young man who is in no distress. HEENT: Head atraumatic, normocephalic. NECK: Supple. CHEST: Rise symmetrical. Breath sounds clear, diminished to bases. HEART: S1, S2. ABDOMEN: Distended. Bowel tones hypoactive. EXTREMITIES: Without cyanosis. ASSESSMENT: 1. Acute appendicitis with inflammatory mass, status post laparoscopic appendectomy converted to open laparotomy on 01/25/2019. 2. Morbid obesity. 3. Unresectable inflammatory mass with some reactive lymph nodes. PLAN: The patient remains stable, continue abx, f/u surgical and oncology recommendations Consultation Date/Type/Reason Admit Date/Time Jan 25, 2019 at 03:12 Initial Consult Date Type of Consult id Requesting Provider: PETE DUQUE MD Date/Time of Note DATE: 01/30/19 TIME: 12:32 Exam/Review of Systems Exam Vitals Vital Signs Date Temp Pulse Resp B/P (MAP) Pulse Ox O2 O2 Flow FiO2 Time Delivery Rate 01/30/19 98.0 83 18 130/68 98 Room Air 07:56 (88) 01/27/19 2.0 08:00 Intake and Output 01/29/19 01/29/19 01/30/19 1515:00 23:00 07:00 IntakeIntake Total 100 ml 950 ml 1000 ml OutputOutput Total 590 ml 130 ml BalanceBalance 100 ml 360 ml 870 ml Results Result Diagram: 01/30/19 0447 01/30/197 Results 24hrs Laboratory Tests Test 01/30/19 04:47 White Blood Count 9.8 Red Blood Count 4.66 L Hemoglobin 13.8 L Hematocrit 41.1 L Mean Corpuscular Volume 88.2 Mean Corpuscular Hemoglobin 29.6 Mean Corpuscular Hemoglobin Concent 33.6 Red Cell Distribution Width 11.2 L Platelet Count 469 H Mean Platelet Volume 8.8 Immature Granulocytes % 1.000 H Neutrophils % 60.5 Lymphocytes % 23.8 Monocytes % 9.4 Eosinophils % 4.4 Basophils % 0.9 Nucleated Red Blood Cells % 0.0 Immature Granulocytes # 0.100 H Neutrophils # 5.9 Lymphocytes # 2.3 Monocytes # 0.9 Eosinophils # 0.4 Basophils # 0.1 Nucleated Red Blood Cells # 0.0 Sodium Level 140 Potassium Level 4.0 Chloride Level 105 Carbon Dioxide Level 26 Anion Gap 9 Blood Urea Nitrogen 12 Creatinine 0.82 Est Glomerular Filtrat Rate mL/min > 60 Glucose Level 89 Calcium Level 8.7 Medications Medication Current Medications IV Flush (NS 3 ml) 3 ml PER PROTOCOL IV ; Start 01/25/19 at 05:30 Ondansetron HCl (Zofran Inj) 4 mg Q6H PRN IV NAUSEA/VOMITING Last administered on 01/26/19at 13:19; Admin Dose 4 MG; Start 01/25/19 at 05:30 Acetaminophen/ Hydrocodone Bitart ([place] (10/325)) 1 tab Q6H PRN PO PAIN; Sta rt 01/25/19 at 16:30 Diphenhydramine HCl (Benadryl) 25 mg Q6H PRN IV ITCHING Last administered on at 01:41; Admin Dose 25 MG; Start 01/25/19 at 16:30 Lactated Ringer's 1,000 ml @ 100 mls/hr Q10H IV Last administered on 01/30/19 08:07; Admin Dose 100 MLS/HR; Start 01/25/19 at 16:25 Heparin Sodium (Porcine) (Heparin (5000 Units/1ml)) 5,000 unit Q12 SC Last administered on 01/30/19 08:05; Admin Dose 5,000 UNIT; Start 01/25/19 at 21:00 Hydromorphone HCl (Dilaudid) 1 mg Q4H PRN IV PAIN LEVEL 6-10 Last administered on 01/30/19 03:18; Admin Dose 1 MG; Start 01/26/19 at 12:30 Piperacillin Sod/ Tazobactam Sod 100 ml @ 200 mls/hr Q6 IVPB Last administered on 01/30/19at 11:53; Admin Dose 200 MLS/HR; Start 01/26/19 at 18:30 Simethicone (Mylicon) 80 mg Q6H PRN GTB DISTENSION/GAS/BLOATING Last administered on 01/28/19at 10:13; Admin Dose 80 MG; Start 01/27/19 at 14:00 Morphine Sulfate (morphine) 2 mg Q4H PRN IV SEVERE PAIN LEVEL 7-10 Last administered on 01/30/19at 11:52; Admin Dose 2 MG; Start 01/29/19 at 06:00 RAE ARANA NP Jan 30, 2019 12:33
[2019-01-30 14:07] VITALS: BP 135/66; PULSE 83; RESP 18
--- NOTE | 2019-01-30 14:45 | PN ---
Date/Time of Note Date/Time of Note DATE: 01/30/19 TIME: 14:39 Assessment/Plan VTE Prophylaxis Risk score (from Ns)>0 risk: 2 SCD applied (from Ns): No SCD contraindicated: low risk/ambulating Pharmacological prophylaxis: NA/contraindicated Pharm contraindication: low risk/ambulating Lines/Catheters IV Catheter Type (from [facility]): PICC Line Central line still needed: Yes Assessment/Plan Assessment/Plan 23 yo obese man with no major PMH presents with acute appendicitis; unable to surgically remove appendix. #Acute appendicitis - Taken to OR on 01/25, appendix surrounded by adhesions, unable to be removed. - For now will continue IV antibiotics. - Advance to clear liquids today. - IV analgesics. - Abdominal fluid cultures negative. - Oncology consulted. #Hepatic steatosis - Associated with elevated AST/ALT - Due to obesity Result Diagram: 01/30/1944601/30/19446 Subjective 24 Hr Interval Summary Free Text/Dictation No acute overnight events. Patient feeling well. He is hungry. Pain adequately controlled. Exam/Review of Systems Exam Vitals Vital Signs Date Temp Pulse Resp B/P (MAP) Pulse Ox O2 O2 Flow FiO2 Time Delivery Rate 01/30/19 98.4 83 18 135/66 100 Room Air 14:07 (89) 01/27/19 2.0 08:00 Intake and Output 01/29/19 01/29/19 01/30/19 1515:00 23:00 07:00 IntakeIntake Total 100 ml 950 ml 1000 ml OutputOutput Total 590 ml 130 ml BalanceBalance 100 ml 360 ml 870 ml Exam Gen: Obese man awake and alert, no acute distress. Eyes: No icterus HEENT: Moist mucous membranes, clear oropharynx Card: Regular rate and rhythm, no murmurs Pulm: Clear to auscultation bilaterally. Abd: Distended, slightly firm. Midline incision with clean dressing and lap scars also well dressed. Two KRISHNA drains with serous output. Ext: No cyanosis/clubbing/edema. Lymph: No palpable lymphadenopathy in the cervical, axillary, or inguinal areas. Results Results 24hrs Laboratory Tests Test 01/30/19 04:47 White Blood Count 9.8 Red Blood Count 4.66 L Hemoglobin 13.8 L Hematocrit 41.1 L Mean Corpuscular Volume 88.2 Mean Corpuscular Hemoglobin 29.6 Mean Corpuscular Hemoglobin Concent 33.6 Red Cell Distribution Width 11.2 L Platelet Count 469 H Mean Platelet Volume 8.8 Immature Granulocytes % 1.000 H Neutrophils % 60.5 Lymphocytes % 23.8 Monocytes % 9.4 Eosinophils % 4.4 Basophils % 0.9 Nucleated Red Blood Cells % 0.0 Immature Granulocytes # 0.100 H Neutrophils # 5.9 Lymphocytes # 2.3 Monocytes # 0.9 Eosinophils # 0.4 Basophils # 0.1 Nucleated Red Blood Cells # 0.0 Sodium Level 140 Potassium Level 4.0 Chloride Level 105 Carbon Dioxide Level 26 Anion Gap 9 Blood Urea Nitrogen 12 Creatinine 0.82 Est Glomerular Filtrat Rate mL/min > 60 Glucose Level 89 Calcium Level 8.7 Medications Medication Current Medications IV Flush (NS 3 ml) 3 ml PER PROTOCOL IV ; Start 01/25/19 at 05:30 Ondansetron HCl (Zofran Inj) 4 mg Q6H PRN IV NAUSEA/VOMITING Last administered on 01/26/19at 13:19; Admin Dose 4 MG; Start 01/25/19 at 05:30 Acetaminophen/ Hydrocodone Bitart ([place] (10/325)) 1 tab Q6H PRN PO PAIN; Start 01/25/19 at 16:30 Diphenhydramine HCl (Benadryl) 25 mg Q6H PRN IV ITCHING Last administered on 01/30/19at 01:41; Admin Dose 25 MG; Start 01/25/19 at 16:30 Lactated Ringer's 1,000 ml @ 100 mls/hr Q10H IV Last administered on 01/30/19at 08:07; Admin Dose 100 MLS/HR; Start 01/25/19 at 16:25 Heparin Sodium (Porcine) (Heparin (5000 Units/1ml)) 5,000 unit Q12 SC Last administered on 01/30/19 08:05; Admin Dose 5,000 UNIT; Start 01/25/19 at 21:00 Hydromorphone HCl (Dilaudid) 1 mg Q4H PRN IV PAIN LEVEL 6-10 Last administered on 01/30/19 03:18; Admin Dose 1 MG; Start 01/26/19 at 12:30 Piperacillin Sod/ Tazobactam Sod 100 ml @ 200 mls/hr Q6 IVPB Last administered on 01/30/19 11:53; Admin Dose 200 MLS/HR; Start 01/26/19 at 18:30 Simethicone (Mylicon) 80 mg Q6H PRN GTB DISTENSION/GAS/BLOATING Last adm inistered on 01/28/19at 10:13; Admin Dose 80 MG; Start 01/27/19 at 14:00 Morphine Sulfate (morphine) 2 mg Q4H PRN IV SEVERE PAIN LEVEL 7-10 Last administered on 01/30/19 11:52; Admin Dose 2 MG; Start 01/29/19 at 06:00 PETE DUQUE MD Jan 30, 2019 14:45
--- NOTE | 2019-01-30 14:48 | QN ---
Documentation Comment Pt is feeling better and has no fever. CT is consistent with inflammatory mass and no adenopathy is described in the report. There is no clear evidence of tumor but I did emphasize to patient that he should be followed after discharge even if all goes well so that f/u imaging can be done 4 to 6 weeks from now. He is also at risk for adhesions that could cause bowel obstruction. BELINDA LEO MD Jan 30, 2019 14:48
[2019-01-30 20:21] VITALS: BP 130/68; PULSE 83; RESP 18
[2019-01-31] MEDS: morphine 2 MG INJ IV PRN (02:33)
[2019-01-31 02:43] VITALS: BP 134/71; PULSE 84; RESP 18
[2019-01-31] MEDS: PIPER-TAZO 3.375 GM IV (PMX) 100 ML IVPB SCH ×4 (06:03→23:00)
[2019-01-31] MEDS: LACTATED RINGER'S 1,000 ML IV SCH (06:03)
[2019-01-31 08:02] VITALS: BP 125/66; PULSE 71; RESP 18
[2019-01-31] MEDS: HEPARIN 5,000 UNIT/1 ML VIAL SC SCH ×2 (08:16→20:01)
--- NOTE | 2019-01-31 11:48 | CONS ---
Assessment/Plan Assessment/Plan Hospital Course (Demo Recall) SUBJECTIVE: All noted no acute changes, looks comfortable, no fevers CT abdomen: Status post midline laparotomy and placement of surgical drains entering the right lower quadrant and left central abdomen. Fluid-filled loops of small bowel with greater degree of hyper enhancement and narrowing in the distal small bowel loops within the right lower quadrant, in the region of removed inflammatory appendix. Close clinical attention may be warranted as region at risk for adhesions. Mild stranding of the mesenteric fat. No definite evidence for rim-enhancing fluid collection. Severe hepatosteatosis. Bilateral small pleural effusions with adjacent atelectasis. Intraabdominal fluid cultures neg ANTIMICROBIALS: Zosyn PHYSICAL EXAMINATION: GENERAL: This is well-developed, well-nourished young man who is in no distress. HEENT: Head atraumatic, normocephalic. NECK: Supple. CHEST: Rise symmetrical. Breath sounds clear, diminished to bases. HEART: S1, S2. ABDOMEN: Distended. Bowel tones hypoactive. EXTREMITIES: Without cyanosis. ASSESSMENT: 1. Acute appendicitis with inflammatory mass, status post laparoscopic appendectomy converted to open laparotomy on 01/25/2019. 2. Morbid obesity. 3. Unresectable inflammatory mass with some reactive lymph nodes. PLAN: The patient remains stable, oncology recommendations noted==> repeat imaging in 4-6 weeks Consultation Date/Type/Reason Admit Date/Time Jan 25, 2019 at 03:12 Initial Consult Date Type of Consult id Requesting Provider: PETE DUQUE MD Date/Time of Note DATE: 01/31/19 TIME: 11:41 Exam/Review of Systems Exam Vitals Vital Signs Date Temp Pulse Resp B/P (MAP) Pulse Ox O2 O2 Flow FiO2 Time Delivery Rate 01/31/19 98.5 71 18 125/66 99 Room Air 08:02 (85) 01/27/19 2.0 08:00 Intake and Output 01/30/19 01/30/19 01/31/19 1515:00 23:00 07:00 IntakeIntake Total 193 ml 1350 ml 1050 ml OutputOutput Total 640 ml 310 ml 835 ml BalanceBalance -447 ml 1040 ml 215 ml Results Result Diagram: 01/31/19 0441 01/31/19 0441 Results 24hrs Laboratory Tests Test 01/31/19 04:41 White Blood Count 10.1 Red Blood Count 4.60 L Hemoglobin 13.9 L Hematocrit 39.6 L Mean Corpuscular Volume 86.1 Mean Corpuscular Hemoglobin 30.2 Mean Corpuscular Hemoglobin Concent 35.1 Red Cell Distribution Width 11.2 L Platelet Count 443 H Mean Platelet Volume 8.8 Immature Granulocytes % 1.100 H Neutrophils % 63.8 Lymphocytes % 21.6 Monocytes % 8.8 Eosinophils % 3.6 Basophils % 1.1 Nucleated Red Blood Cells % 0.0 Immature Granulocytes # 0.110 H Neutrophils # 6.5 Lymphocytes # 2.2 Monocytes # 0.9 Eosinophils # 0.4 Basophils # 0.1 Nucleated Red Blood Cells # 0.0 Sodium Level 140 Potassium Level 3.9 Chloride Level 106 Carbon Dioxide Level 24 Anion Gap 10 Blood Urea Nitrogen 10 Creatinine 0.65 Est Glomerular Filtrat Rate mL/min > 60 Glucose Level 95 Calcium Level 8.9 Phosphorus Level 4.1 Magnesium Level 2.2 Medications Medication Current Medications IV Flush (NS 3 ml) 3 ml PER PROTOCOL IV ; Start 01/25/19 at 05:30 Ondansetron HCl (Zofran Inj) 4 mg Q6H PRN IV NAUSEA/VOMITING Last administered on 01/26/19at 13:19; Admin Dose 4 MG; Start 01/25/19 at 05:30 Acetaminophen/ Hydrocodone Bitart ([place] (10/325)) 1 tab Q6H PRN PO PAIN; Start 01/25/19 at 16:30 Diphenhydramine HCl (Benadryl) 25 mg Q6H PRN IV ITCHING Last administered on 01/30/19at 01:41; Admin Dose 25 MG; Start 01/25/19 at 16:30 Heparin Sodium (Porcine) (Heparin (5000 Units/1ml)) 5,000 unit Q12 SC Last administered on 01/31/19 08:16; Admin Dose 5,000 UNIT; Start 01/25/19 at 21:00 Hydromorphone HCl (Dilaudid) 1 mg Q4H PRN IV PAIN LEVEL 6-10 Last administered on 01/30/19 03:18; Admin Dose 1 MG; Start 01/26/19 at 12:30 Piperacillin Sod/ Tazobactam Sod 100 ml @ 200 mls/hr Q6 IVPB Last administered on 01/31/19 06:03; Admin Dose 200 MLS/HR; Start 01/26/19 at 18:30 Simethicone (Mylicon) 80 mg Q6H PRN GTB DISTENSION/GAS/BLOATING Last administered on 01/31/19at 02:34; Admin Dose 80 MG; Start 01/27/19 at 14:00 Morphine Sulfate (morphine) 2 mg Q4H PRN IV SEVERE PAIN LEVEL 7-10 Last administered on 01/31/19at 02:33; Admin Dose 2 MG; Start 01/29/19 at 06:00 RAE ARANA NP Jan 31, 2019 11:48
--- NOTE | 2019-01-31 11:50 | QN ---
Documentation Comment Pt is stable and feels ready to go home. I reemphasized that f/u will be important even if everything goes back to normal and he feels great. BELINDA LEO MD Jan 31, 2019 11:50
[2019-01-31 13:54] VITALS: BP 127/22; PULSE 68; RESP 18
--- NOTE | 2019-01-31 14:57 | PN ---
Date/Time of Note Date/Time of Note DATE: 01/31/19 TIME: 14:53 Assessment/Plan VTE Prophylaxis Risk score (from Nsg)>0 risk: 3 SCD applied (from Ns): No SCD contraindicated: low risk/ambulating Pharmacological prophylaxis: NA/contraindicated Pharm contraindication: low risk/ambulating Lines/Catheters IV Catheter Type (from Nrs): PICC Line Central line still needed: Yes Assessment/Plan Assessment/Plan 23 yo obese man with no major PMH presents with acute appendicitis; unable to surgically remove appendix. #Acute appendicitis - Taken to OR on 01/25, appendix surrounded by adhesions, unable to be removed. - Advancing diet. Anticipate discharge when tolerating regular diet. - Discharge on 7-10 days of PO cipro+flagyl - Abdominal fluid cultures negative. - Follow up with Dr. Cohen in clinic for drain removal and possible repe at surgery. #Hepatic steatosis - Associated with elevated AST/ALT - Due to obesity Result Diagram: 01/31/1944001/31/19440 Subjective 24 Hr Interval Summary Free Text/Dictation Patient tolerating clear liquids without nausea, abdominal pain. Also had a soft bowel movement today. Overall doing well. Exam/Review of Systems Exam Vitals Vital Signs Date Temp Pulse Resp B/P (MAP) Pulse Ox O2 O2 Flow FiO2 Time Delivery Rate 01/31/19 98.0 68 18 127/22 99 Room Air 13:54 (57) 01/27/19 2.0 08:00 Intake and Output 01/30/19 01/30/19 01/31/19 1515:00 23:00 07:00 IntakeIntake Total 193 ml 1350 ml 1050 ml OutputOutput Total 640 ml 310 ml 835 ml BalanceBalance -447 ml 1040 ml 215 ml Exam Gen: Obese man awake and alert, no acute distress. Eyes: No icterus HEENT: Moist mucous membranes, clear oropharynx Card: Regular rate and rhythm, no murmurs Pulm: Clear to auscultation bilaterally. Abd: Distended, slightly firm. Midline incision with clean dressing and lap scars also well dressed. Two KRISHNA drains with serous output. Ext: No cyanosis/clubbing/edema. Lymph: No palpable lymphadenopathy in the cervical, axillary, or inguinal areas. Results Results 24hrs Laboratory Tests Test 01/31/19 04:41 White Blood Count 10.1 Red Blood Count 4.60 L Hemoglobin 13.9 L Hematocrit 39.6 L Mean Corpuscular Volume 86.1 Mean Corpuscular Hemoglobin 30.2 Mean Corpuscular Hemoglobin Concent 35.1 Red Cell Distribution Width 11.2 L Platelet Count 443 H Mean Platelet Volume 8.8 Immature Granulocytes % 1.100 H Neutrophils % 63.8 Lymphocytes % 21.6 Monocytes % 8.8 Eosinophils % 3.6 Basophils % 1.1 Nucleated Red Blood Cells % 0.0 Immature Granulocytes # 0.110 H Neutrophils # 6.5 Lymphocytes # 2.2 Monocytes # 0.9 Eosinophils # 0.4 Basophils # 0.1 Nucleated Red Blood Cells # 0.0 Sodium Level 140 Potassium Level 3.9 Chloride Level 106 Carbon Dioxide Level 24 Anion Gap 10 Blood Urea Nitrogen 10 Creatinine 0.65 Est Glomerular Filtrat Rate mL/min > 60 Glucose Level 95 Calcium Level 8.9 Phosphorus Level 4.1 Magnesium Level 2.2 Medications Medication Current Medications IV Flush (NS 3 ml) 3 ml PER PROTOCOL IV ; Start 01/25/19 at 05:30 Ondansetron HCl (Zofran Inj) 4 mg Q6H PRN IV NAUSEA/VOMITING Last administered on 01/26/19at 13:19; Admin Dose 4 MG; Start 01/25/19 at 05:30 Acetaminophen/ Hydrocodone Bitart ([place] (10/325)) 1 tab Q6H PRN PO PAIN; Start 01/25/19 at 16:30 Diphenhydramine HCl (Benadryl) 25 mg Q6H PRN IV ITCHING Last administered on 01/30/19at 01:41; Admin Dose 25 MG; Start 01/25/19 at 16:30 Heparin Sodium (Porcine) (Heparin (5000 Units/1ml)) 5,000 unit Q12 SC Last administered on 01/31/19 08:16; Admin Dose 5,000 UNIT; Start 01/25/19 at 21:00 Hydromorphone HCl (Dilaudid) 1 mg Q4H PRN IV PAIN LEVEL 6-10 Last administered on 01/30/19 03:18; Admin Dose 1 MG; Start 01/26/19 at 12:30 Piperacillin Sod/ Tazobactam Sod 100 ml @ 200 mls/hr Q6 IVPB Last administered on 01/31/19 12:06; Admin Dose 200 MLS/HR; Start 01/26/19 at 18:30 Simethicone (Mylicon) 80 mg Q6H PRN GTB DISTENSION/GAS/BLOATING Last administered on 01/31/19 02:34; Admin Dose 80 MG; Start 01/27/19 at 14:00 Morphine Sulfate (morphine) 2 mg Q4H PRN IV SEVERE PAIN LEVEL 7-10 Last administered on 01/31/19 02:33; Admin Dose 2 MG; Start 01/29/19 at 06:00 PETE DUQUE MD Jan 31, 2019 14:57
--- NOTE | 2019-01-31 17:39 | PN ---
Date/Time of Note Date/Time of Note DATE: 01/31/19 TIME: 17:33 Assessment/Plan Lines/Catheters IV [facility] P[facility] Line Assessment/Plan Chief Complaint/Hosp Course 23 year old admitted with abdominal pain, CT acute appendicitis, inflammatory mass, s/p exploration - mass unresectable - plan to continue antibiotics, repeat CT in 1wk If pts pain is controlled, and tolerating liquids he can be discharged. Assessment/Plan Follow up in clinic -- [phone] 1wk -- Subjective 24 Hr Interval Summary Constitutional: improved, ambulates, flatus, requiring IVF Feeding: advancing diet Pain Control: mild Exam/Review of Systems Vital Signs Vitals Vital Signs Date Temp Pulse Resp B/P (MAP) Pulse Ox O2 O2 Flow FiO2 Time Delivery Rate 01/31/19 98.0 68 18 127/22 99 Room Air 13:54 (57) 01/27/19 2.0 08:00 Intake and Output 01/30/19 01/30/19 01/31/19 1515:00 23:00 07:00 IntakeIntake Total 193 ml 1350 ml 1050 ml OutputOutput Total 640 ml 310 ml 835 ml BalanceBalance -447 ml 1040 ml 215 ml Results Result Diagram: 01/31/19 0441 01/31/19 0441 Results Last [address] abdomen: Status post midline laparotomy and placement of surgical drains entering the right lower quadrant and left central abdomen. Fluid-filled loops of small bowel with greater degree of hyper enhancement and narrowing in the distal small bowel loops within the right lower quadrant, in the region of removed inflammatory appendix. Close clinical attention may be warranted as region at risk for adhesions. Mild stranding of the mesenteric fat. No definite evidence for rim-enhancing fluid collection. Severe hepatosteatosis. Bilateral small pleural effusions with adjacent atelectasis. Procedures Procedures s/p exploratory laparotomy with inflammatory mass at area appendix PHAM MCINTYRE MD Jan 31, 2019 17:39
[2019-01-31 20:20] VITALS: BP 118/56; PULSE 72; RESP 18
[2019-02-01 02:21] VITALS: BP 126/64; PULSE 83; RESP 18
[2019-02-01] MEDS: PIPER-TAZO 3.375 GM IV (PMX) 100 ML IVPB SCH ×2 (05:17→12:10)
[2019-02-01 08:37] VITALS: BP 125/63; PULSE 72; RESP 18
[2019-02-01] MEDS: HEPARIN 5,000 UNIT/1 ML VIAL SC SCH (08:50)
--- NOTE | 2019-02-01 11:21 | QN ---
Documentation Comment Chart reviewed. Nothing new to add at this time. I anticipate that he will go home and be followed by the surgeon as an outpatient. I will see again if needed but the likelihood of malignancy seems low at this time. F/U in the future will be important to be sure of this, however. BELINDA LEO MD Feb 01, 2019 11:21
[2019-02-01] MEDS ORDERED: CIPR500T4 PO (11:45)
[2019-02-01] MEDS ORDERED: METR-122 PO (11:45)
--- NOTE | 2019-02-01 11:47 | PDOCDIS ---
Discharge Instructions CONDITION [id number] Patient Condition: [id number] Good HOME CARE INSTRUCTIONS: [id number] Diet Instructions: [id number] Reduced Calorie ACTIVITY: [id number] Activity Restrictions: [id number] Slowly Increase Activity FOLLOW UP/APPOINTMENTS Follow-up Plan Follow-up with Dr. Wilmer Cohen in 1 week, please call for appointment [phone] Follow-up with PCP in 1 to 2 weeks RACHEL LOPEZ Feb 01, 2019 11:47
--- NOTE | 2019-02-01 11:51 | DS ---
Date/Time of Note Date/Time of Note DATE: 02/01/19 TIME: 11:50 Discharge Summary Admission/Discharge Info Admit Date/Time Jan 25, 2019 at 03:12 Discharge Date/Time February 01, 2019 Discharge Diagnosis 23 yo obese man with no major PMH presents with acute appendicitis; unable to surgically remove appendix. #Acute appendicitis - Taken to OR on 01/25, appendix surrounded by adhesions, unable to be removed. -Patient tolerating regular diet - Discharge on 7 days of PO cipro+flagyl - Abdominal fluid cultures negative. - Follow up with Dr. Cohen in clinic for drain removal and possible repeat surgery. #Hepatic steatosis - Associated with elevated AST/ALT - Due to obesity Patient Condition: Good Hospital Course Patient is 23-year-old male history of obesity who presents with appendicitis, patient taken the OR but unable to remove appendix. Surgical recommendation was for continuation of antibiotics, patient was tolerating a p.o. diet and was stable for DC with plans follow-up surgery. On the day of discharge patient vitals, labs and physical exam are stable. Home Meds Active Scripts Metronidazole* (Metronidazole*) 500 Mg Tablet, 500 MG PO TID for 7 Days, #21 TAB Prov:RACHEL LOPEZ 02/01/19 Ciprofloxacin Hcl* (Ciprofloxacin Hcl*) 500 Mg Tablet, 500 MG PO BID for 7 Days, #14 TAB Prov:RACHEL LOPEZ 02/01/19 Sodium Chloride (Saline Nasal [place]) 45 Ml [place], 2 SPRAYS NS Q2H PRN for NASAL CONGESTION, #1 BOT Prov:WANDA GRAVES. [employer] 03/01/15 Ibuprofen* (Motrin*) 800 Mg Tab, 800 MG PO Q6H PRN for PAIN AND OR ELEVATED TEMP , #30 TAB Prov:WANDA GRAVES. [employer] 03/01/15 Follow-up Plan Follow-up with Dr. Wilmer Cohen in 1 week, please call for appointment [phone] Follow-up with PCP in 1 to 2 weeks Primary Care Provider Nazanin Song Time spent on discharge: > 30 minutes RACHEL LOPEZ Feb 01, 2019 11:51
--- NOTE | 2019-02-01 13:00 | CONS ---
Consultation Date/Type/Reason Admit Date/Time Jan 25, 2019 at 03:12 Initial Consult Date SUBJECTIVE: Pt is awake, alert,a febrile, sitting up in bed. Looks comfortable, no fevers CT abdomen: Status post midline laparotomy and placement of surgical drains entering the right lower quadrant and left central abdomen. Fluid-filled loops of small bowel with greater degree of hyper enhancement and narrowing in the distal small bowel loops within the right lower quadrant, in the region of removed inflammatory appendix. Close clinical attention may be warranted as region at risk for adhesions. Mild stranding of the mesenteric fat. No definite evidence for rim-enhancing fluid collection. Severe hepatosteatosis. Bilateral small pleural effusions with adjacent atelectasis. Intraabdominal fluid cultures neg ANTIMICROBIALS: Zosyn PHYSICAL EXAMINATION: GENERAL: This is well-developed, well-nourished young man who is in no distres s. HEENT: Head atraumatic, normocephalic. NECK: Supple. CHEST: Rise symmetrical. Breath sounds clear, diminished to bases. HEART: S1, S2. ABDOMEN: Distended. Bowel tones hypoactive. EXTREMITIES: Without cyanosis. ASSESSMENT: 1. Acute appendicitis with inflammatory mass, status post laparoscopic appendectomy converted to open laparotomy on 01/25/2019. 2. Morbid obesity. 3. Unresectable inflammatory mass with some reactive lymph nodes. PLAN: The patient remains stable. OK to D/C home with PO antbx. Oncology recommendations noted==> repeat imaging in 4-6 weeks. Requesting Provider: PETE DUQUE MD Date/Time of Note DATE: 02/01/19 TIME: 12:58 Exam/Review of Systems Exam Vitals Vital Signs Date Temp Pulse Resp B/P (MAP) Pulse Ox O2 O2 Flow FiO2 Time Delivery Rate 02/01/19 97.6 72 18 125/63 97 08:37 (83) 02/01/19 Room Air 02:21 Intake and Output 01/31/19 01/31/19 02/01/19 1515:00 23:00 07:00 IntakeIntake Total 800 ml 700 ml 200 ml OutputOutput Total 250 ml 615 ml BalanceBalance 800 ml 450 ml -415 ml Results Result Diagram: 02/01/19 0427 02/01/19 0427 Results 24hrs Laboratory Tests Test 02/01/19 04:27 White Blood Count 9.7 Red Blood Count 4.65 L Hemoglobin 13.9 L Hematocrit 40.7 L Mean Corpuscular Volume 87.5 Mean Corpuscular Hemoglobin 29.9 Mean Corpuscular Hemoglobin Concent 34.2 Red Cell Distribution Width 11.4 L Platelet Count 477 H Mean Platelet Volume 9.1 Immature Granulocytes % 1.400 H Neutrophils % 57.8 Lymphocytes % 27.7 Monocytes % 8.0 Eosinophils % 4.1 Basophils % 1.0 Nucleated Red Blood Cells % 0.0 Immature Granulocytes # 0.140 H Neutrophils # 5.6 Lymphocytes # 2.7 Monocytes # 0.8 Eosinophils # 0.4 Basophils # 0.1 Nucleated Red Blood Cells # 0.0 Sodium Level 139 Potassium Level 3.7 Chloride Level 106 Carbon Dioxide Level 25 Anion Gap 8 Blood Urea Nitrogen 9 Creatinine 0.77 Est Glomerular Filtrat Rate mL/min > 60 Glucose Level 101 Calcium Level 9.0 Medications Medication Current Medications IV Flush (NS 3 ml) 3 ml PER PROTOCOL IV ; Start 01/25/19 at 05:30 Ondansetron HCl (Zofran Inj) 4 mg Q6H PRN IV NAUSEA/VOMITING Last administered on 01/26/19 13:19; Admin Dose 4 MG; Start 01/25/19 at 05:30 Acetaminophen/ Hydrocodone Bitart ([place] (10/325)) 1 tab Q6H PRN PO PAIN Last administered on 02/01/19 02:04; Admin Dose 1 TAB; Start 01/25/19 at 16:30 Diphenhydramine HCl (Benadryl) 25 mg Q6H PRN IV ITCHING Last administered on 01/30/19 01:41; Admin Dose 25 MG; Start 01/25/19 at 16:30 Heparin Sodium (Porcine) (Heparin (5000 Units/1ml)) 5,000 unit Q12 SC Last administered on 02/01/19 08:50; Admin Dose 5,000 UNIT; Start 01/25/19 at 21:00 Hydromorphone HCl (Dilaudid) 1 mg Q4H PRN IV PAIN LEVEL 6-10 Last administered on 01/30/19 03:18; Admin Dose 1 MG; Start 01/26/19 at 12:30 Piperacillin Sod/ Tazobactam Sod 100 ml @ 200 mls/hr Q6 IVPB Last administered on 02/01/19 12:10; Admin Dose 200 MLS/HR; Start 01/26/19 at 18:30 Simethicone (Mylicon) 80 mg Q6H PRN GTB DISTENSION/GAS/BLOATING Last administered on 01/31/19 02:34; Admin Dose 80 MG; Start 01/27/19 at 14:00 Morphine Sulfate (morphine) 2 mg Q4H PRN IV SEVERE PAIN LEVEL 7-10 Last administered on 01/31/19at 02:33; Admin Dose 2 MG; Start 01/29/19 at 06:00 TRAY HAHN Feb 01, 2019 13:00
[2019-02-01 14:00] VITALS: BP 136/70; PULSE 80; RESP 18
== END 2019-02-01 16:13 | disposition home or self-care (01) | DRG 854 ==
LOC: FTE 23:17 → 5EC 01-25 03:12
PROVIDERS: ADMIT Internal Medicine; ATTEND Internal Medicine
PROC: 0WJG0ZZ Inspection of Peritoneal Cavity, Open Approach (ICD-10-PCS; 2019-01-25)
PROC: 0DN80ZZ Release Small Intestine, Open Approach (ICD-10-PCS; 2019-01-25)
PROC: 0W9H00Z Drainage of Retroperitoneum with Drainage Device, Open Approach (ICD-10-PCS; principal; 2019-01-25 14:00)
PROC: 02H633Z Insertion of Infusion Device into Right Atrium, Percutaneous Approach (ICD-10-PCS; 2019-01-27)
DX: A41.9 Sepsis, unspecified organism (principal); K35.80 Unspecified acute appendicitis; E66.01 Morbid (severe) obesity due to excess calories; R19.09 Other intra-abdominal and pelvic swelling, mass and lump; K66.0 Peritoneal adhesions (postprocedural) (postinfection); R59.0 Localized enlarged lymph nodes; K76.0 Fatty (change of) liver, not elsewhere classified; R74.0 Nonspecific elevation of levels of transaminase and lactic acid dehydrogenase [LDH]; Z68.36 Body mass index [BMI] 36.0-36.9, adult
CPT/HCPCS: 36415; 36569; 71045; 71260; 74176; 74177; 76937; 80048; 80053; 81001; 83690; 83735; 84100; 85025; 86850; 86900; 86901; 86920; 87070; 93005; 96374; 96375; 96376; J0295; J1100; J1170; J1200; J1644; J1885; J2250; J2270; J2370; J2405; J2543; J2795; J3010; J3480; J7030; J7120; Q9967

== ENCOUNTER 2019-02-26 21:42 | Emergency (ER) | payer OTHER ==
[~2019-02-26] VITALS: Ht 170.2 cm; Wt 93.7 kg
[~2019-02-26 21:42] MED LIST changes: +CIPR500T4 PO; +HYDR-4011 PO; +METR-122 PO; +NAPR-985 PO
[2019-02-26 21:58] VITALS: BP 139/78; PULSE 69; RESP 16; Ht 170.2 cm; Wt 93.7 kg
[2019-02-27] MEDS ORDERED: ONDANSETRON 4 MG INJ IV STA (00:30)
[2019-02-27] MEDS ORDERED: morphine 4 MG/ML VIAL IV STA (00:30)
[2019-02-27] MEDS ORDERED: SOD CHLORIDE 0.9% 1,000 ML IV STA (00:30)
[2019-02-27] MEDS ORDERED: SOD CHLORIDE 0.9% 100 ML ONE (02:42)
[2019-02-27] MEDS ORDERED: IOHEXOL 300MG/ML 150 ML BTL ONE (02:42)
== END 2019-02-27 02:44 | disposition home or self-care (01) ==
LOC: FTE 21:42
DX: K35.80 Unspecified acute appendicitis (principal)
CPT/HCPCS: 36415; 74177; 80053; 81003; 83690; 85025; 85610; 85730; 96374; 96375; J2270; J2405; J7030; Q9967; Z7502; Z7610